=== PATIENT | female | born 1985 | race Caucasian/White ===

== ENCOUNTER 2020-05-15 19:21 | Inpatient (IN) | payer OTHER, SELFPAY ==
[2020-05-15] VITALS (7 sets, daily range): BP systolic 102–145; BP diastolic 64–86; PULSE 68–95; RESP 16–27; TEMP 37.2–38.4; O2SAT 97–100
--- NOTE | ~2020-05-15 | MR_ITS ---
EXAMINATION: MR brain/brain stem wo con DATE: 05/18/2020 18:30 INDICATION: Headache and fever. TECHNIQUE: Magnetic resonance imaging (MRI) of the brain and brainstem was performed without intraven ous contrast. Sequences included sagittal and axial T1-weighted FSE, axial diffusion-weighted FS EPI, axial T2*-weighted GRE, axial T2-weighted FLAIR Propeller, and axial T2-weighted Propeller. Apparent diffusion coefficient (ADC) maps were created. COMPARISON: Head CT 05/15/2020 FINDINGS: There is no intracranial hemorrhage, acute infarction, or abnormal intracranial mass lesion . The ventricles are normal in size. The orbits are normal. The paranasal sinuses are clear. The mast oid air cells are normal. IMPRESSION: 1. Normal brain. Reviewed, dictated and finalized at location A. IMPRESSION: 1. Normal brain.
--- NOTE | ~2020-05-15 | US_ITS ---
EXAMINATION: US pelvic complete w TV DATE: 05/18/2020 14:57 INDICATION: Recent miscarriage TECHNIQUE: Multiple transabdominal and endovaginal sonographic images of the pelvis were obtained. COMPARISON: None. FINDINGS: The uterus measures 8.4 x 4.0 x 3.7 cm. The endometrial complex measures 7 mm. The right ov dillon measures 2.5 x 1.6 x 1.5 cm. The left ovary measures 3.0 x 2.8 x 2.1 cm. There is normal vascular flow in the ovaries. There is no free fluid in the pelvis. IMPRESSION: 1. Unremarkable pelvic ultrasound. Reviewed, dictated and finalized at location A.
--- NOTE | ~2020-05-15 | XR_ITS ---
EXAMINATION: XR chest 2V DATE: 05/18/2020 14:54 INDICATION: Right-sided headache TECHNIQUE: PA and lateral views of the chest are obtained. COMPARISON: 05/15/2020 FINDINGS: The lungs are free of acute opacities. There is no pleural effusion or pneumothorax. The ca rdiomediastinal silhouette is normal. The visualized bones and soft tissues are unremarkable. IMPRESSION: 1. No acute cardiopulmonary abnormality. Reviewed, dictated and finalized at location A.
--- NOTE | ~2020-05-15 | XR_ITS ---
EXAMINATION: XR chest 1V portable DATE: 05/15/2020 20:52 INDICATION: Fever. Nausea and vomiting. Headache. TECHNIQUE: A single frontal view of the chest was obtained. COMPARISON: None. FINDINGS: The chest demonstrates clear lungs without pneumonia, pleural effusion, or pneumothorax. Th e heart size is normal. IMPRESSION: 1. No acute cardiopulmonary disease. Reviewed, dictated and finalized at location A.
--- NOTE | ~2020-05-15 | XR_ITS ---
XR lumbar puncture diagnostic DATE: 05/20/2020 17:57 INDICATION: Headache and intermittent fever. Possible tick exposure. TECHNIQUE: The purpose of the procedure, technique and potential complications including persistent h eadaches and need for possible epidural patch and up to approximately 3% of patients was explained to the patient. The patient verbalized understanding and gave consent. Timeout procedure confirmed prop er patient and procedure. The skin over the dorsal aspect of the lumbar spine was prepared with sterile Betadine solution. Ster ile drape was applied. 1% lidocaine local anesthetic was administered to the skin and under sliding s oft tissues. A 6 inch 20-gauge spinal needle was introduced in the midline under fluoroscopic guidanc e into the lumbar spinal subarachnoid space. The initial 4 cc collected was blood-tinged. The 3 subse quent collecting tubules were clear, indicating that this was most likely a traumatic tap. Recommend correlation with diagnostic pathology findings. A total of 12 cc was collected. The opening pressure was 20 mmHg. IMPRESSION: Opening pressure of 20 mmHg Likely traumatic tap, with clearing of the initially blood-tinged CSF on the second through fourth co llecting tubes Reviewed, dictated and finalized at Location A. Reviewed, dictated and finalized at location A. IMPRESSION: Opening pressure of 20 mmHg Likely traumatic tap, with clearing of the initially blood-tinged CSF on the se cond through fourth collecting tubes
--- NOTE | ~2020-05-15 | CT_ITS ---
EXAMINATION: CT brain wo con DATE: 05/15/2020 21:28 INDICATION: Headache. TECHNIQUE: Computed tomography (CT) of the head was performed without intravenous contrast. The mA wa s adjusted according to patient size. Iterative reconstruction technique was employed. The dose-lengt h product was 605.33 mGy-cm. COMPARISON: None FINDINGS: There is no intracranial hemorrhage, acute infarction, or abnormal intracranial mass lesion . The ventricles are normal in size. The paranasal sinuses are clear. The mastoid air cells are lauren l. The orbits are normal. IMPRESSION: 1. Normal brain. Reviewed, dictated and finalized at location A. IMPRESSION: 1. Normal brain.
--- NOTE | 2020-05-15 20:02 | ED.FEVER ---
HPI - Fever General Chief Complaint: Fever Stated Complaint: fever/n/v, wants covid tested Time Seen by Provider: 05/15/20 19:55 History of Present Illness HPI Narrative: Patient presents with 24 hours of fever. She had a miscarriage 2 weeks ago and is still bleeding and has pelvic pain. She also has a scant cough. HER-2 daughters went to the fitness center a week and a half ago that has reported COVID exposure. No one else at the house is sick. She also has a headache on the right side that goes to the forehead, and some right neck pain. She gauges the headache at 10 out of 10. She can put her chin on her chest. Head feels better with the lights out. She has a history of migraine. She has nausea and vomiting all day today. She tried to take ibuprofen for the headache but threw it up. She is a realtor. She does not smoke cigarettes, drink alcohol, or do drugs. MD elicited complaint: fever Onset (ago): hour(s) Context: other (Recent miscarriage) Associated symptoms: headache, cough, abdominal pain, nausea, vomiting and other (Vaginal bleeding) Related Data Allergies Allergy/AdvReac Type Severity Reaction Status Date / Time cefaclor Allergy Unknown Skin Verified 05/15/20 19:26 Reaction amoxicillin Allergy Rash Verified 05/15/20 19:26 Review of Systems Review of Systems: Narrative: CONSTITUTIONAL: She has fever, but not chills, or sweats. EYES: Denies visual changes, redness, or discharge. ENT: Denies rhinorrhea, congestion, sore throat, or otalgia. CARDIOVASCULAR: Denies chest pain, palpitations, or edema. RESPIRATORY: She has cough but not dyspnea. GASTROINTESTINAL: She has abdominal pain, nausea, vomiting, but not diarrhea. GENITOURINARY: Denies dysuria or hematuria. Still has vaginal bleeding since her miscarriage 2 weeks ago, with pelvic pain SKIN: Denies rash or itching. MUSCULOSKELETAL: Denies back pain, joint pain, or myalgia. NEUROLOGIC: She has headache, but not numbness, or weakness.. All systems reviewed & are unremarkable except as noted in HPI and below PMFSH Past Medical History Medical History (Updated 05/16/20 @ 00:33 by Esther Rivas MD) History of asthma Miscarriage Family History Family History (Updated 09/23/18 @ 14:01 by DOCTOR UNKNOWN) Other Family history of malignant neoplasm of breast Hypertension Social History Social History (Updated 05/15/20 @ 20:06 by Esther Rivas MD) Smoking status: Never smoker Alcohol intake: never Substance use: never Exam Narrative: Exam Narrative: GENERAL: Well-appearing, well-nourished, and in no acute distress. Feels cool. No neck tenderness. Full range of motion of the neck. HEAD: Normocephalic, atraumatic. EYES: PERRLA and EOMI. ENT: Nares clear, no rhinorrhea or epistaxis. Mucous membranes moist. NECK: Supple. CHEST: Clear to auscultation. No respiratory distress. HEART: Regular rate and rhythm. No murmur heard. Normal peripheral pulses. ABDOMEN: Soft, nontender, nondistended, normal active bowel sounds. EXTREMITIES: Normal range of motion. No edema. SKIN: Warm, dry, no rash. NEURO: No focal deficits. Alert and oriented x3. PSYCH: Normal mood and affect. : External Female Exam: other (Shaved pubis) Speculum Exam - Vagina: normal appearance of the vagina, normal palpation and abnormal vaginal discharge (Thick yellow, no odor, no blood) Speculum Exam - Cervix: normal palpation Bimanual exam- vagina & uterus: uterine mobility normal and non-tender Bimanual Exam- Adnexa, other: normal adnexae Course Reevaluation(s) Reevaluation #1: 20 1:06 PM, headache is down to 8 out of 10, nausea is better. We will add a CAT scan of the brain, and Benadryl for migraine. Date: 05/15/20 Time: 21:06 Reevaluation #2: Reevaluation at 20 3:38 PM. Patient still has a headache of 8 out of 10. Fever has resolved without antipyretics. She has had 2 L of fluids. She says the headaches at the base of her head, and is worse when she coughs.
[2020-05-15 20:24] LABS: Basophils Percent Auto 0.3 % (0.2-1.2); Eosinophils Percent Auto 0.1 % (0-4.4); Hematocrit 36.5 % (37.0-47.0); Hemoglobin 12.8 g/dL (12.0-15.0); Immature Granulocyte Absolute 0.04 K/mm3 (0.00-0.031); Immature Granulocyte Percent A 0.5 % (0-0.5); Lymphocytes Absolute Auto 0.99 K/mm3 (0.9-3.2); Lymphocytes Percent Auto 11.5 % (18.3-44.2); Mean Corpuscular HGB Conc 35.1 g/dl (32-36); Mean Corpuscular Hemoglobin 31.6 pg (26-34); Mean Corpuscular Volume 90.1 fl (80-100); Mean Platelet Volume 10.1 fl (7.4-10.4); Monocytes Absolute Auto 0.4 K/mm3 (0.1-0.6); Monocytes Percent Auto 4.9 % (2.6-8.5); Neutrophils Absolute Auto 7.1 K/mm3 (1.3-6.7); Neutrophils Percent Auto 82.7 % (45.5-73.1); Platelet Count Result 272 k/mm3 (150-375); Red Blood Count 4.05 M/mm3 (4.2-5.4); Red Cell Distribution Width 11.8 % (11.5-14.5); White Blood Count 8.6 K/mm3 (4.5-10.0)
[2020-05-15] MEDS: SODIUM CHLORIDE 0.9% IV 1,000 ML 999 ML IV CONT ×3 (20:33→23:57)
[2020-05-15 20:34] LABS: INR 1.1; Prothrombin Time 14.2 Seconds (11.1-14.7)
[2020-05-15] MEDS: ONDANSETRON INJ 4 MG/2 ML VIAL IV PUSH (20:34)
[2020-05-15] MEDS: MORPHINE SULFATE 4 MG/ML INJ IV PUSH (20:34)
[2020-05-15 20:35] LABS: Lactic Acid Reflex 0.7 mmol/L (0.7-2.1); Partial Thromboplastin Time 26.5 SECONDS (22.3-36.8)
[2020-05-15 20:39] LABS: Alanine Aminotransferase 26 U/L (4-35); Albumin Level 4.3 g/dL (3.5-5.1); Alkaline Phosphatase 94 U/L (38-126); Aspartate Amino Transferase 22 U/L (14-36); Bilirubin,Total 2.4 mg/dL (0.2-1.3); Blood Urea Nitrogen 11 mg/dL (7-17); CRP 1.6 mg/dL (<1.0); Calcium 8.7 mg/dL (8.4-10.2); Carbon Dioxide 25 mmol/L (22-30); Chloride 102 mmol/L (98-107); Estimated CRCL calculation 116 ml/min; Estimated Glomerular Filt Rate > 60; Glucose 109 mg/dL (65-105); Potassium 3.9 mmol/L (3.4-5.0); Sodium 134 mmol/L (137-145)
--- NOTE | 2020-05-15 21:04 | PC.NURSE ---
Pt told a urine sample is needed but is unable to void at this time
[2020-05-15] MEDS: diphenhydrAMINE HCl INJ 50 MG/ML VIAL IV PUSH (22:10)
[2020-05-15 23:05] LABS: Add Urine Microscopic? YES; Appearance Urine Clear (Clear); Bacteria Urine Trace /hpf; Bilirubin Urine Negative (Negative); Blood Urine Negative (Negative); Color Urine Yellow (Yellow); Glucose Urine UA Negative (Negative); Ketones Urine 2+ mg/dL (Negative); Leukocyte Esterase Ur Negative LEU/UL (Negative); Mucus Urine Few /lpf; Nitrate Urine Negative (Negative); Protein Urine Negative (Negative); RBC Urine 0-2 /hpf (0-2); Specific Grav Ur 1.023 (1.001-1.035); Squamous Epithelial Cell Urine Few /hpf (Few); Urobilinogen Urine Negative mg/dL (<2.0); WBC Urine 0-3 /hpf
--- NOTE | 2020-05-16 | PC.NURSE ---
Set up LP tray for ERP
[2020-05-16] MEDS: SODIUM CHLORIDE 0.9% IV 1,000 ML 999 ML IV CONT (00:43)
[2020-05-16] MEDS: diphenhydrAMINE HCl INJ 50 MG/ML VIAL 25 MG IV PUSH (00:43)
[2020-05-16 01:30] VITALS: BP 108/48; PULSE 74; RESP 16; TEMP 36.9; O2SAT 100; BMI 38.3
[2020-05-16 01:32] VITALS: BP 97/64; PULSE 85; RESP 15; TEMP 37.2; O2SAT 95
--- NOTE | 2020-05-16 01:51 | ADMGEN ---
This patient, Geovani Trevino, was admitted to [facility] Surg Room 324-01. Patient/family oriented to hospital policies and general routines including ID bracelet, bed and alarms, visiting hours, pain management, procedures, bathroom and other care routines, personal items, smoking policy, room service/diet, and visiting hours. Valuables list has been completed. Information on how to activate the Rapid Response Team has been discussed. Patient/Family are encouraged to report perceived risks to care and to ask questions if they do not understand what they are told or what they should do.
--- NOTE | 2020-05-16 02:26 | PM.IMHP ---
H&P: HPI History of Present Illness Chief complaint: fever, headache, vomiting Narrative: This is a 34 year old female with known asthma who presented to the hospital with a complaint of a frontal and right sided headache that has been ongoing for the past 2 days, nausea, vomiting and fever. The patient has had a sporadic cough but denies any persistent coughing. Her history is significant for having a recent miscarriage 2 weeks ago. She continues to have mild vaginal bleeding but denies any significant abdominal pain. The patient denies any neck stiffness but did complain of neck discomfort in the ER tonight. She reports that any food intake leads to worsening nausea and vomiting. She denies any seizure like activity tonight. She denies any focal neurological symptoms tonight. The patient does have a history of migaines in the past. She was evaluated in the ER tonight and LP was attempted but not obtained. The patient was empirically treated with antibiotics and swabbed for COVID-19. Review of Systems Review of Systems: All systems reviewed & are unremarkable except as noted in HPI and below PMFSH Past Medical History Medical History History of asthma Migraine Miscarriage Family History Family History Mother Family history of malignant neoplasm of breast Hypertension Grandparent Family history of malignant neoplasm of breast Social History Social History Smoking status: Former smoker Tobacco type: cigarettes Additional smoking assessment comments: smokes only socially had 1 cigarette 4-5 months ago Alcohol intake: former Drinks per week: 0 Substance use: never Gender identity (if verbalized by the patient): Female Spiritual care concerns: No Meds Home Medications and Allergies Allergies Allergy/AdvReac Type Severity Reaction Status Date / Time cefaclor Allergy Unknown Skin Verified 05/15/20 19:26 Reaction amoxicillin Allergy Rash Verified 05/15/20 19:26 Vital Signs Vital Signs - 24 hr 05/15/20 19:23 05/15/20 20:03 05/15/20 21:30 Temperature 37.8 C H 38.4 C H Pulse Rate 91 82 95 Respiratory Rate 20 16 27 H Blood Pressure 126/79 120/83 121/67 Pulse Oximetry 98 98 97 05/15/20 22:30 05/15/20 22:55 05/15/20 22:58 Temperature 37.4 C Pulse Rate 75 72 Respiratory Rate 24 H 19 Blood Pressure 102/64 145/86 H Pulse Oximetry 100 100 05/15/20 23:59 05/16/20 01:30 05/16/20 01:32 Temperature 37.2 C 36.9 C 37.2 C Pulse Rate 68 74 85 Respiratory Rate 24 H 16 15 Blood Pressure 122/70 108/48 L 97/64 L Pulse Oximetry 100 100 95 Exam Const: General: cooperative, alert, awake, ill appearing, tired appearing and uncomfortable Nutritional Appearance: obese Orientation/consciousness: patient oriented x3 HENMT: Head: normal to inspection General nose exam: Normal external nose present Face and sinus: normal facial exam Mouth: Yes Normal oral and palatal mucosa present and Yes oropharynx normal Eyes: Pupils: Equal, round and reactive pupils present EOM: EOMs intact bilaterally Neck: Neck: supple and no JVD Thyroid: thyroid normal Lymphatic: lymphadenopathy not noted Resp: Effort & Inspection: normal respiratory effort Auscultation: clear to auscultation bilaterally Cardio: Rate: regular rate Rhythm: regular rhythm Heart sounds: no murmurs GI: Inspection: normal to inspection Auscultation: normal bowel sounds Skin: General skin exam: normal color and no rashes or lesions noted Neuro: General: patient oriented x3 and other (No neck stiffness. Brudzinski sign is negative) Cranial nerves: Yes CN's II-XII intact bilaterally and Yes Equal, round and reactive pupils present Speech: normal speech Motor exam (neuro): 5/5 motor strength present throughout Sensory Exam: normal sensation Extrem: General:
[2020-05-16] MEDS: DEXTROSE 5%/0.9% SOD CHL 1,000 ML 100 ML IV CONT ×2 (02:36→10:40)
[2020-05-16] MEDS: ACETAMINOPHEN 325 MG TABLET 650 MG PO ×2 (03:15→12:44)
[2020-05-16 06:00] VITALS: BP 99/47; PULSE 66; RESP 16; TEMP 36.9; O2SAT 94
[2020-05-16 06:07] LABS: Basophils Percent Auto 0.4 % (0.2-1.2); Hematocrit 30.9 % (37.0-47.0); Hemoglobin 10.6 g/dL (12.0-15.0); Immature Granulocyte Absolute 0.03 K/mm3 (0.00-0.031); Immature Granulocyte Percent A 0.4 % (0-0.5); Lymphocytes Absolute Auto 1.62 K/mm3 (0.9-3.2); Mean Corpuscular HGB Conc 34.3 g/dl (32-36); Mean Corpuscular Hemoglobin 31.6 pg (26-34); Mean Corpuscular Volume 92.2 fl (80-100); Monocytes Absolute Auto 0.7 K/mm3 (0.1-0.6); Monocytes Percent Auto 8.7 % (2.6-8.5); Neutrophils Absolute Auto 6.1 K/mm3 (1.3-6.7); Neutrophils Percent Auto 71.5 % (45.5-73.1); Platelet Count Result 205 k/mm3 (150-375); Red Blood Count 3.35 M/mm3 (4.2-5.4); Red Cell Distribution Width 11.8 % (11.5-14.5); White Blood Count 8.5 K/mm3 (4.5-10.0)
[2020-05-16 06:26] LABS: Blood Urea Nitrogen 7 mg/dL (7-17); Calcium 7.2 mg/dL (8.4-10.2); Carbon Dioxide 22 mmol/L (22-30); Chloride 107 mmol/L (98-107); Estimated CRCL calculation 135 ml/min; Estimated Glomerular Filt Rate > 60; Glucose 126 mg/dL (65-105); Potassium 3.3 mmol/L (3.4-5.0); Sodium 134 mmol/L (137-145)
[2020-05-16] MEDS: PROCHLORPERAZINE EDISYLATE 10 MG/2 ML VIAL IV PUSH (07:39)
[2020-05-16 10:00] VITALS: BP 107/60; PULSE 81; RESP 18; TEMP 37.6; O2SAT 98
[2020-05-16] MEDS: POTASSIUM CHLORIDE 20 MEQ TABLET 40 MEQ PO (12:43)
[2020-05-16 14:00] VITALS: BP 118/69; PULSE 80; RESP 20; TEMP 37.9; O2SAT 95
[2020-05-16 14:26] LABS: SARS-CoV-2 RNA PCR Negative
--- NOTE | 2020-05-16 14:44 | PC.NURSE ---
Notified Dr. Lynn that patient COVID test is negative.
[2020-05-16] MEDS: KETOROLAC 30 MG/ML VIAL (*BKC) IV PUSH (14:58)
--- NOTE | 2020-05-16 17:19 | PM.IMPN ---
Progress Note: A&P Assessment and Plan (1) Febrile illness, acute: Code(s): R50.9 - Fever, unspecified Status: Acute Assessment and Plan: The patient appears to have a viral syndrome. She has been admitted for further care. Brain CT was unremarkable. Continue supportive care. LP was attempted in ER but unsuccessful but patient obviously does not have meningitis and I do not think she is toxic enough to warrant an LP at this time with no other signs other than headache which is improving. Blood cultures still pending and COVID test is negative Continue to monitor next 24 hours and if does well probable discharge then (2) Headache: Qualifiers: Headache chronicity pattern: unspecified pattern Headache type: unspecified Intractability: intractable Qualified Code(s): R51 - Headache Code(s): R51 - Headache Status: Acute Assessment and Plan: . The patient has not had any focal neurological symptoms . CT brain was normal. . We will continue to treat headache with analgesic medications as needed. If headache worsens can proceed with MRA or CTA (3) Suspected 2019 novel coronavirus infection: Code(s): Z20.828 - Contact with and (suspected) exposure to other viral communicable diseases Status: Acute Assessment and Plan: The patient has been swabbed for possible COVID-19 virus and is negative. (4) History of asthma: Code(s): Z87.09 - Personal history of other diseases of the respiratory system Status: Chronic Assessment and Plan: PRN bronchodilators as needed. Subjective Date/time seen: 05/16/20 17:19 Interval history: Date of visit 05/16 34-year-old healthy white female presented with 4-5 day history malaise, fever, headache. This afternoon after IV Toradol headache has subsided and was able to rest and feel better. Still not much appetite but did take clear liquids Exam Narrative: Exam Narrative: Blood pressure 118/70 pulse is 80 temperature 37.9? with T-max of only 38.4 Pupils equal reactive to light sclera anicteric Mouth and pharynx normal Neck is supple no adenopathy Lungs clear CV regular rate rhythm no murmurs Abdomen soft nontender bowel sounds normal active Extremities without edema distal pulses 2+ no rashes Neuro alert pleasant cooperative, cranial nerves 2-12 are intact no focal deficit oriented x3 and level of consciousness normal Objective Data Vital Signs Vital Signs: Vital Signs - 24 hr 05/15/20 19:23 05/15/20 20:03 05/15/20 21:30 Temperature 37.8 C H 38.4 C H Pulse Rate 91 82 95 Respiratory Rate 20 16 27 H Blood Pressure 126/79 120/83 121/67 Pulse Oximetry 98 98 97 05/15/20 22:30 05/15/20 22:55 05/15/20 22:58 Temperature 37.4 C Pulse Rate 75 72 Respiratory Rate 24 H 19 Blood Pressure 102/64 145/86 H Pulse Oximetry 100 100 05/15/20 23:59 05/16/20 01:30 05/16/20 01:32 Temperature 37.2 C 36.9 C 37.2 C Pulse Rate 68 74 85 Respiratory Rate 24 H 16 15 Blood Pressure 122/70 108/48 L 97/64 L Pulse Oximetry 100 100 95 05/16/20 06:00 05/16/20 10:00 05/16/20 14:00 Temperature 36.9 C 37.6 C 37.9 C H Pulse Rate 66 81 80 Respiratory Rate 16 18 20 Blood Pressure 99/47 L 107/60 118/69 Pulse Oximetry 94 98 95 Intake/Output Intake/Output: Intake & Output 05/13/20 05/14/20 05/15/20 05/16/20 23:59 23:59 23:59 23:59 Intake Total 19990 Output Total 2 Balance 1999 2218 Meds/Results Medications: Active Medications Generic Name Dose Route Start Last Admin Trade Name Freq PRN Reason Stop Dose Admin Acetaminophen 650 mg 05/16/20 02:42 05/16/20 12:44 Tylenol Tablet PO 650 mg Q4H PRN Administration Mild Pain (1-3) or Fever Dextrose/Sodium Chloride 1,000 mls @ 100 mls/hr 05/16/20 00:55 05/16/20 10:40 Dextrose 5% Sodium Chloride 0.9% IV CONT 100 mls/hr .Q10H MARTA Administration Ketorolac Tromethamine 15 mg 05/16/20 17:04 Toradol Inj IV PUSH 05/17/20
[2020-05-16 21:56] VITALS: BP 139/78; PULSE 71; RESP 18; TEMP 37; O2SAT 100
[2020-05-17] MEDS: DEXTROSE 5%/0.9% SOD CHL 1,000 ML 75 ML IV CONT (01:04)
[2020-05-17] MEDS: KETOROLAC 30 MG/ML VIAL (*BKC) 15 MG IV PUSH ×2 (01:05→09:15)
[2020-05-17] MEDS: ONDANSETRON INJ 4 MG/2 ML VIAL IV PUSH (04:30)
[2020-05-17] MEDS: ACETAMINOPHEN 325 MG TABLET 650 MG PO ×3 (05:55→20:41)
[2020-05-17 06:00] VITALS: BP 132/53; PULSE 70; RESP 18; TEMP 36.9; O2SAT 98
[2020-05-17 06:19] LABS: Blood Urea Nitrogen 3 mg/dL (7-17); Calcium 8.3 mg/dL (8.4-10.2); Carbon Dioxide 25 mmol/L (22-30); Chloride 102 mmol/L (98-107); Estimated CRCL calculation 117 ml/min; Estimated Glomerular Filt Rate > 60; Glucose 122 mg/dL (65-105); Potassium 3.8 mmol/L (3.4-5.0); Sodium 136 mmol/L (137-145)
[2020-05-17 10:00] VITALS: BP 130/57; PULSE 80; RESP 16; TEMP 37.1; O2SAT 98
[2020-05-17 14:00] VITALS: BP 147/76; PULSE 69; RESP 16; TEMP 36.9; O2SAT 100
--- NOTE | 2020-05-17 14:02 | PM.IMPN ---
Progress Note: A&P Assessment and Plan (1) Febrile illness, acute: Code(s): R50.9 - Fever, unspecified Status: Acute Assessment and Plan: Suspect related to viral syndrome. Brain CT was unremarkable. CXR clear. WBC normal. CRP 1.6. LP was attempted in ER but unsuccessful. Clinically, not felt patient has meningitis. COVID negative. Blood cultures NGTD but not yet 48hrs old. Will monitor overnight. Check for WNV. Consider repeating CXR if has recurrent fevers. probably home tomorrow if she remains stable (2) Headache: Qualifiers: Headache chronicity pattern: unspecified pattern Headache type: unspecified Intractability: intractable Qualified Code(s): R51 - Headache Code(s): R51 - Headache Status: Acute Assessment and Plan: The patient continues to have headache without neck pain. No focal neurological symptoms. CT brain was normal. Could be viral related that may have improved but worsened/persistent due to LP. (3) Suspected 2019 novel coronavirus infection: Code(s): Z20.828 - Contact with and (suspected) exposure to other viral communicable diseases Status: Acute Assessment and Plan: The patient was swabbed for COVID-19 virus and is negative. (4) History of asthma: Code(s): Z87.09 - Personal history of other diseases of the respiratory system Status: Chronic Assessment and Plan: Stable. Continue bronchodilators as needed. Subjective Date/time seen: 05/17/20 14:02 Interval history: 34-year-old healthy white female presented with 4-5 day history malaise, fever, headache. Still with headache. No hx of migraines. GALLEGOS mostly frontal and positional (worse when she sits up). No n/v but did require Zofram this morning. Had a miscarriage 2 weeks ago. BHCG was 27K but now down to 20 (being followed by her OB). She denies urinary symptoms. She denies abd pain or lower pelvic pain. Only slight vaginal discharge with brownish, non-foul smelling discharge. No purulence. No neck pain. Exam Narrative: Exam Narrative: Tm 100.2 98.8 130/57 80 16 98% ra Gen - NARD Neck - supple Chest - CTA bilaterally, nml RR CV - RRR S1/S2 Abd - Soft, NT/ND, Positive BS Back - no swelling around LP site. Ext - No pedal edema Neuro - Alert and oriented. Nonfocal exam. Psych - Nml mood and affect Skin - Warm and dry; no rash Objective Data Vital Signs Vital Signs: Vital Signs - 24 hr 05/16/20 21:56 05/17/20 06:00 05/17/20 10:00 Temperature 98.6 F 98.5 F 98.8 F Pulse Rate 71 70 80 Respiratory Rate 18 18 16 Blood Pressure 139/78 132/53 L 130/57 L Pulse Oximetry 100 98 98 Intake/Output Intake/Output: Intake & Output 05/14/20 05/15/20 05/16/20 05/17/20 23:59 23:59 23:59 23:59 Intake Total 1999 3770 250 Output Total 2602 2500 Balance 1999 1168 -2250 Meds/Results Medications: Active Medications Generic Name Dose Route Start Last Admin Trade Name Freq PRN Reason Stop Dose Admin Acetaminophen 650 mg 05/16/20 02:42 05/17/20 05:55 Tylenol Tablet PO 650 mg Q4H PRN Administration Mild Pain (1-3) or Fever Dextrose/Sodium Chloride 1,000 mls @ 75 mls/hr 05/16/20 00:55 05/17/20 01:04 Dextrose 5% Sodium Chloride 0.9% IV CONT 75 mls/hr .[id number] MARTA Administration Radiology Results: ITS Impressions Chest X-Ray 05/15/20 20:55 IMPRESSION: 1. No acute cardiopulmonary disease. Head CT 05/15/20 21:34 IMPRESSION: 1. Normal brain. Labs Labs: Laboratory Results - last 24 hr 05/16/20 05/17/20 00:57 05:52 Sodium 136 L Potassium 3.8 Chloride 102 Carbon Dioxide 25 BUN 3 L Creatinine 0.70 Estim Creat Clear Calc 117 Estimated GFR > 60 Glucose 122 H Calcium 8.3 L SARS-CoV-2 RNA (RT-PCR) Negative Quality VTE Prophylaxis VTE prophylaxis: mechanical ordered
[2020-05-17 22:00] VITALS: BP 115/67; PULSE 68; RESP 18; TEMP 36.6; O2SAT 97
[2020-05-17] MEDS: KETOROLAC 15 MG/ML VIAL (*BKC) IV PUSH (23:12)
[2020-05-18 06:10] VITALS: PULSE 69; RESP 18; TEMP 38.6; O2SAT 100
[2020-05-18 06:39] VITALS: TEMP 38.4
[2020-05-18] MEDS: ACETAMINOPHEN 325 MG TABLET 650 MG PO ×3 (06:39→21:04)
[2020-05-18 08:00] VITALS: TEMP 37.7
[2020-05-18] MEDS: KETOROLAC 15 MG/ML VIAL (*BKC) IV PUSH (09:18)
--- NOTE | 2020-05-18 13:08 | PM.IMPN ---
Progress Note: A&P Assessment and Plan (1) Febrile illness, acute: Code(s): R50.9 - Fever, unspecified Status: Acute Assessment and Plan: Suspect related to viral syndrome. Brain CT was unremarkable. CXR clear. WBC normal. CRP 1.6. LP was attempted in ER but unsuccessful. COVID negative. Blood cultures NGTD. Clinically, not felt patient has meningitis but with persistent fevers and headache. Neurology consulted and discussed. Will proceed with LP by radiology. Repeat CXR. COnsider repeating COIVD if LP bland. Start acyclovir. Will check pelvic US as well given recent miscarriage and pelvic pain. (2) Headache: Qualifiers: Headache chronicity pattern: unspecified pattern Headache type: unspecified Intractability: intractable Qualified Code(s): R51 - Headache Code(s): R51 - Headache Status: Acute Assessment and Plan: The patient continues to have headache with fever. No focal neurological symptoms but now with mild neck pain. CT brain was normal. Could be viral related that may have improved but worsened/persistent due to LP. Will have neurology consulted. (3) Suspected 2019 novel coronavirus infection: Code(s): Z20.828 - Contact with and (suspected) exposure to other viral communicable diseases Status: Acute Assessment and Plan: The patient was swabbed for COVID-19 virus and is negative. (4) History of asthma: Code(s): Z87.09 - Personal history of other diseases of the respiratory system Status: Chronic Assessment and Plan: Stable. Continue bronchodilators as needed. Subjective Date/time seen: 05/18/20 13:08 Interval history: 34-year-old healthy white female presented with 4-5 day history malaise, fever, headache. patient still with frontal headache. No rhinorrhea or postnasal drainage. Still with fevers and chills. No mouth lesions. Complains of nausea. She has a slight cough but denies chest pain or abdominal pain. She is having photophobia. She now complains of posterior neck pain. Exam Narrative: Exam Narrative: Tm 101.4 115/67 69 18 100% ra Gen - NARD Neck - supple without meningismus signs. She does have palpable pericervical tenderness Chest - CTA bilaterally, nml RR CV - RRR S1/S2 Abd - Soft, NT, +BS, mild suprapubic tenderness Ext - No pedal edema Neuro - Alert and oriented. Nonfocal exam. Psych - Nml mood and affect Skin - Warm and dry; no rash Objective Data Vital Signs Vital Signs: Vital Signs - 24 hr 05/17/20 14:00 05/17/20 22:00 05/18/20 06:10 Temperature 98.4 F 97.8 F 101.4 F H Pulse Rate 69 68 69 Respiratory Rate 16 18 18 Blood Pressure 147/76 H 115/67 Pulse Oximetry 100 97 100 05/18/20 06:39 05/18/20 08:00 Temperature 101.2 F H 99.8 F H Pulse Rate Respiratory Rate Blood Pressure Pulse Oximetry Intake/Output Intake/Output: Intake & Output 05/15/20 05/16/20 05/17/20 05/18/20 23:59 23:59 23:59 23:59 Intake Total 1999 3770 1550 590 Output Total 2602 5000 1100 Balance 1999 9506 -8657 -022 Meds/Results Medications: Active Medications Generic Name Dose Route Start Last Admin Trade Name Freq PRN Reason Stop Dose Admin Acetaminophen 650 mg 05/16/20 02:42 05/18/20 06:39 Tylenol Tablet PO 650 mg Q4H PRN Administration Mild Pain (1-3) or Fever Radiology Results: ITS Impressions Chest X-Ray 05/15/20 20:55 IMPRESSION: 1. No acute cardiopulmonary disease. Head CT 05/15/20 21:34 IMPRESSION: 1. Normal brain. Quality VTE Prophylaxis VTE prophylaxis: mechanical ordered
[2020-05-18 14:10] VITALS: BP 114/70; PULSE 70; RESP 18; TEMP 37.3; O2SAT 100
[2020-05-18] MEDS: ACYCLOVIR SODIUM IVPB 1,000 MG in DEXTROSE 5% IN WATER 250 ML 266 MG IVPB ×2 (15:42→21:06)
--- NOTE | 2020-05-18 16:04 | WPDNEURCNPN ---
Assessment and Plan Assessment and plan (1) History of asthma: Code(s): Z87.09 - Personal history of other diseases of the respiratory system Status: Chronic (2) Febrile illness, acute: Code(s): R50.9 - Fever, unspecified Status: Acute (3) Headache: Qualifiers: Headache chronicity pattern: unspecified pattern Headache type: unspecified Intractability: intractable Qualified Code(s): R51 - Headache Code(s): R51 - Headache Status: Acute (4) Suspected 2019 novel coronavirus infection: Code(s): Z20.828 - Contact with and (suspected) exposure to other viral communicable diseases Status: Acute (5) Fever: Qualifiers: Fever type: unspecified Qualified Code(s): R50.9 - Fever, unspecified Code(s): R50.9 - Fever, unspecified Status: Acute (6) Vomiting: Qualifiers: Nausea presence: with nausea Vomiting Intractability: non-intractable Vomiting type: unspecified Qualified Code(s): R11.2 - Nausea with vomiting, unspecified Code(s): R11.10 - Vomiting, unspecified Status: Acute Additional Plan discussed at length with the patient and the mother and they opted to have an MRI done 1st and they would like to wait for spinal fluid analysis if the present situation continues we will continue the present medical management and I will order the brain MRI with and without contrast and monitor closely and if need be and thing is the etiology still not clear about her fever then we should proceed with the spinal fluid analysis as I have discussed with Dr. Easley earlier this morning Consult date: 05/18/20 Time Seen: 15:45 HPI: Geovani Trevino is a 34 year old female who was examined by my partner Dr. Mckinnon earlier this morning for headache and fever since then I discussed it with Dr. Easley and I had recommended for the spinal tap because of continuation of the periodic fever and the headaches however the patient and the patient's mother is are reluctant at this time further history was obtained from the patient and the mother in her teenage years she used to have what sounds like menstrual migraine headaches and since then she stopped however at this time she has been suffering from a fever associated with the headache which initially started in the back of the head and now concentrated around her right side of the face and is periodic and comes and go without any associated loss of consciousness without any associated lateralizing paresthesias or weakness there has been no change in her mental status and it has been confirmed by her mother Review of Systems Review of Systems: All systems reviewed & are unremarkable except as noted in HPI and below PMFSH Past Medical History Medical History History of asthma Migraine Miscarriage Family History Family History Mother Family history of malignant neoplasm of breast Hypertension Grandparent Family history of malignant neoplasm of breast Social History Social History Smoking status: Former smoker Tobacco type: cigarettes Additional smoking assessment comments: smokes only socially had 1 cigarette 4-5 months ago Alcohol intake: former Drinks per week: 0 Substance use: never Gender identity (if verbalized by the patient): Female Spiritual care concerns: No Meds Home Medications and Allergies Home Medications Medication Instructions Recorded Confirmed Type No Home Medications 05/16/20 05/16/20 History Allergies Allergy/AdvReac Type Severity Reaction Status Date / Time cefaclor Allergy Unknown Skin Verified 05/15/20 19:26 Reaction Vital Signs Vital Signs - 24 hr 05/17/20 22:00 05/18/20 06:10 05/18/20 06:39 Temperature 36.6 C 38.6 C H 38.4 C H Pulse Rate 68 69 Respiratory Rate 18 18 Bl
[2020-05-18 16:17] LABS: Basophils Percent Auto 0.4 % (0.2-1.2); Eosinophils Percent Auto 0.3 % (0-4.4); Hematocrit 34.5 % (37.0-47.0); Hemoglobin 11.8 g/dL (12.0-15.0); Immature Granulocyte Absolute 0.04 K/mm3 (0.00-0.031); Immature Granulocyte Percent A 0.6 % (0-0.5); Lymphocytes Absolute Auto 1.19 K/mm3 (0.9-3.2); Mean Corpuscular HGB Conc 34.2 g/dl (32-36); Mean Corpuscular Hemoglobin 31.1 pg (26-34); Monocytes Absolute Auto 0.8 K/mm3 (0.1-0.6); Neutrophils Absolute Auto 4.9 K/mm3 (1.3-6.7); Neutrophils Percent Auto 69.7 % (45.5-73.1); Platelet Count Result 209 k/mm3 (150-375); Red Blood Count 3.79 M/mm3 (4.2-5.4); Red Cell Distribution Width 11.9 % (11.5-14.5)
[2020-05-18 16:27] LABS: Lactic Acid 1.7 mmol/L (0.7-2.1)
[2020-05-18] MEDS: ONDANSETRON INJ 4 MG/2 ML VIAL IV PUSH (16:48)
[2020-05-18 16:58] LABS: Alanine Aminotransferase 18 U/L (4-35); Albumin Level 3.9 g/dL (3.5-5.1); Alkaline Phosphatase 66 U/L (38-126); Anion Gap 11.7 mmol/L (7-16); Aspartate Amino Transferase 17 U/L (14-36); Bilirubin,Total 1.4 mg/dL (0.2-1.3); Blood Urea Nitrogen 8 mg/dL (7-17); CRP < 0.5 mg/dL (<1.0); Calcium 8.3 mg/dL (8.4-10.2); Carbon Dioxide 28 mmol/L (22-30); Chloride 99 mmol/L (98-107); Estimated CRCL calculation 117 ml/min; Estimated Glomerular Filt Rate > 60; Glucose 118 mg/dL (65-105); Lactate Dehydrogenase 447 U/L (313-618); Potassium 3.7 mmol/L (3.4-5.0); Sodium 135 mmol/L (137-145)
[2020-05-18 22:00] VITALS: BP 117/66; PULSE 72; RESP 18; TEMP 37.5; O2SAT 97
[2020-05-19 05:13] VITALS: TEMP 37.7
[2020-05-19] MEDS: ACETAMINOPHEN 325 MG TABLET 650 MG PO ×4 (05:13→20:00)
[2020-05-19] MEDS: ACYCLOVIR SODIUM IVPB 1,000 MG in DEXTROSE 5% IN WATER 250 ML 266 MG IVPB ×3 (05:15→22:30)
[2020-05-19 06:00] VITALS: BP 140/81; PULSE 71; RESP 18; TEMP 37.8; O2SAT 98
[2020-05-19 06:13] VITALS: TEMP 37.3
[2020-05-19 06:33] LABS: Hematocrit 33.3 % (37.0-47.0); Hemoglobin 11.5 g/dL (12.0-15.0); Mean Corpuscular HGB Conc 34.5 g/dl (32-36); Mean Corpuscular Hemoglobin 31.3 pg (26-34); Mean Corpuscular Volume 90.7 fl (80-100); Mean Platelet Volume 10.3 fl (7.4-10.4); Platelet Count Result 232 k/mm3 (150-375); Red Blood Count 3.67 M/mm3 (4.2-5.4); Red Cell Distribution Width 11.9 % (11.5-14.5); White Blood Count 6.6 K/mm3 (4.5-10.0)
[2020-05-19 06:49] LABS: Anion Gap 12.2 mmol/L (7-16); Blood Urea Nitrogen 7 mg/dL (7-17); Calcium 8.1 mg/dL (8.4-10.2); Carbon Dioxide 27 mmol/L (22-30); Chloride 97 mmol/L (98-107); Estimated CRCL calculation 104 ml/min; Estimated Glomerular Filt Rate > 60; Glucose 150 mg/dL (65-105); Potassium 3.2 mmol/L (3.4-5.0); Sodium 133 mmol/L (137-145)
[2020-05-19] MEDS: POTASSIUM CHLORIDE 20 MEQ TABLET 40 MEQ PO (08:09)
--- NOTE | 2020-05-19 12:16 | WPDNEUROPN ---
Progress Note: A&P Assessment and Plan (1) History of asthma: Code(s): Z87.09 - Personal history of other diseases of the respiratory system Status: Chronic (2) Febrile illness, acute: Code(s): R50.9 - Fever, unspecified Status: Acute (3) Fever: Qualifiers: Fever type: unspecified Qualified Code(s): R50.9 - Fever, unspecified Code(s): R50.9 - Fever, unspecified Status: Acute (4) Headache: Qualifiers: Headache chronicity pattern: unspecified pattern Headache type: unspecified Intractability: intractable Qualified Code(s): R51 - Headache Code(s): R51 - Headache Status: Acute Additional Plan discussed with the patient in detail all option risk in the benefits of the treatment and also discuss with the burglar alarm operator Dr. Easley after 2 interrupted discussion the patient is finally willing to undergo spinal tap for the fluid analysis particularly looking for any evidence of herpes infection at this point we should continue the present medical management From all the parameters we have it does not seem to be a COVID infection and this was shared by Dr. Easley and also shared it with the patient Review of Systems Review of Systems: All systems reviewed & are unremarkable except as noted in HPI and below Exam Const: General: comfortable and no acute distress HENMT: General nose exam: Normal nares present Mouth: Yes moist mucous membranes Eyes: General: appearance normal, both eyes and all related structures Neck: Neck: supple and no JVD Other: there is no nuchal rigidity and full range of motions of the neck noted Resp: Effort & Inspection: normal respiratory effort Auscultation: clear to auscultation bilaterally Cardio: Rate: regular rate Rhythm: regular rhythm GI: Auscultation: normal bowel sounds Skin: General skin exam: normal color and no rashes or lesions noted Neuro: Other: patient remains awake alert well oriented time place and person with normal speech and language function normal cranial examination normal motor examination normal and symmetrical reflexes and negative Babinski sign Extrem: General: normal to inspection Psych: Mental Status: mental status grossly normal Objective Data Vital Signs Vital Signs: Vital Signs - 24 hr 05/18/20 14:10 05/18/20 22:00 05/19/20 05:13 Temperature 37.3 C 37.5 C 37.7 C H Pulse Rate 70 72 Respiratory Rate 18 18 Blood Pressure 114/70 117/66 Pulse Oximetry 100 97 05/19/20 06:00 05/19/20 06:13 Temperature 37.8 C H 37.3 C Pulse Rate 71 Respiratory Rate 18 Blood Pressure 140/81 Pulse Oximetry 98 Intake/Output Intake/Output: Intake & Output 05/16/20 05/17/20 05/18/20 05/19/20 23:59 23:59 23:59 23:59 Intake Total 3770 1550 2350 970 Output Total 2602 5000 2500 1700 Balance 9288 -3450 -150 -730 Meds/Results Medications: Active Medications Generic Name Dose Route Start Last Admin Trade Name Freq PRN Reason Stop Dose Admin Acetaminophen 650 mg 05/16/20 02:42 05/19/20 08:07 Tylenol Tablet PO 650 mg Q4H PRN Administration Mild Pain (1-3) or Fever Acyclovir Sodium 1,000 mg/ 270 mls @ 266 mls/hr 05/18/20 14:25 05/19/20 06:16 Dextrose IVPB Infused Q8HR MARTA Infusion Ondansetron HCl 4 mg 05/18/20 16:41 05/18/20 16:48 Zofran Inj IV PUSH 4 mg Q6H PRN Administration Nausea And Vomiting Radiology Results: ITS Impressions Head CT 05/15/20 21:34 IMPRESSION: 1. Normal brain. Chest X-Ray 05/18/20 15:13 IMPRESSION: 1. No acute cardiopulmonary abnormality. Pelvic/Transvag US 05/18/20 15:15 IMPRESSION: 1. Unremarkable pelvic ultrasound. Brain MRI 05/19/20 06:31 IMPRESSION: 1. Normal brain. Labs Labs: Laboratory Results - last 24 hr 05/18/20 05/18/20 05/18/20 16:07 16:07 16:07 WBC 7.0 RBC 3.79 L Hgb 11.8 L Hct 34.5 L MCV 91.0 MCH 31.1 MCHC 34.2 RDW 11.
--- NOTE | 2020-05-19 13:35 | PM.IMPN ---
Progress Note: A&P Assessment and Plan (1) Febrile illness, acute: Code(s): R50.9 - Fever, unspecified Status: Acute Assessment and Plan: Suspect related to viral syndrome. Brain CT and MRI unremarkable. CXR clear on admission. WBC normal. CRP 1.6. LP was attempted in ER but unsuccessful. COVID negative. Blood cultures NGTD. Clinically, not felt patient have bacteraial meningitis but with persistent fevers and headache. Neurology consulted and appreciate their input. Repeat CXR normal. Pelvic US showing no acute findings. Inflammatory markers negative. Check HSV titers and Ehrlichiosis. (2) Headache: Qualifiers: Headache chronicity pattern: unspecified pattern Headache type: unspecified Intractability: intractable Qualified Code(s): R51 - Headache Code(s): R51 - Headache Status: Acute Assessment and Plan: The patient continues to have headache with fever. No focal neurological symptoms. CT and MRI brain are normal. Could be viral related that may have improved but worsened/persistent due to LP. Neurology following and appreciate their input. Patient now agrees for LP so will arrange. (3) Suspected 2019 novel coronavirus infection: Code(s): Z20.828 - Contact with and (suspected) exposure to other viral communicable diseases Status: Acute Assessment and Plan: The patient was swabbed for COVID-19 virus and is negative. (4) History of asthma: Code(s): Z87.09 - Personal history of other diseases of the respiratory system Status: Chronic Assessment and Plan: Stable. Continue bronchodilators as needed. Subjective Date/time seen: 05/19/20 13:35 Interval history: 34-year-old healthy female presented with 4-5 day history malaise, fever, headache. Patient slept well. GALLEGOS okay last night but worse today requiring Tylenol which decreased severity and able for her to rest. Nausea is improved. She refused LP until MRI completed. MRI normal but she wants to hold off and talk with neurology about LP. Potential tick exposure a few weeks ago. Exam Narrative: Exam Narrative: Tm 100.0 99.1 140/81 71 18 98% Gen - NARD Chest - CTA bilaterally, nml RR CV - RRR S1/S2 Abd - Soft, NT/ND, +BS Ext - No pedal edema Psych - Nml mood and affect Skin - Warm and dry Objective Data Vital Signs Vital Signs: Vital Signs - 24 hr 05/18/20 14:10 05/18/20 22:00 05/19/20 05:13 Temperature 99.1 F 99.5 F 100 F H Pulse Rate 70 72 Respiratory Rate 18 18 Blood Pressure 114/70 117/66 Pulse Oximetry 100 97 05/19/20 06:00 05/19/20 06:13 Temperature 100.0 F H 99.1 F Pulse Rate 71 Respiratory Rate 18 Blood Pressure 140/81 Pulse Oximetry 98 Intake/Output Intake/Output: Intake & Output 05/16/20 05/17/20 05/18/20 05/19/20 23:59 23:59 23:59 23:59 Intake Total 3770 1550 2350 970 Output Total 2602 5000 2500 1700 Balance 5048 -3450 -150 -730 Meds/Results Medications: Active Medications Generic Name Dose Route Start Last Admin Trade Name Freq PRN Reason Stop Dose Admin Acetaminophen 650 mg 05/16/20 02:42 05/19/20 08:07 Tylenol Tablet PO 650 mg Q4H PRN Administration Mild Pain (1-3) or Fever Acyclovir Sodium 1,000 mg/ 270 mls @ 266 mls/hr 05/18/20 14:25 05/19/20 06:16 Dextrose IVPB Infused Q8HR MARTA Infusion Ondansetron HCl 4 mg 05/18/20 16:41 05/18/20 16:48 Zofran Inj IV PUSH 4 mg Q6H PRN Administration Nausea And Vomiting Radiology Results: ITS Impressions Head CT 05/15/20 21:34 IMPRESSION: 1. Normal brain. Chest X-Ray 05/18/20 15:13 IMPRESSION: 1. No acute cardiopulmonary abnormality. Pelvic/Transvag US 05/18/20 15:15 IMPRESSION: 1. Unremarkable pelvic ultrasound. Brain MRI 05/19/20 06:31 IMPRESSION: 1. Normal brain. Labs Labs: Laboratory Results - last 24 hr 05/18/20 05/18/20 05/18/20 16:07 16:07
[2020-05-19 14:00] VITALS: BP 121/74; PULSE 90; RESP 16; TEMP 38.1; O2SAT 98
[2020-05-19 22:00] VITALS: BP 112/69; PULSE 88; RESP 20; TEMP 37.7; O2SAT 94
[2020-05-20] MEDS: ONDANSETRON INJ 4 MG/2 ML VIAL IV PUSH ×2 (00:02→09:25)
[2020-05-20] MEDS: ACETAMINOPHEN 325 MG TABLET 650 MG PO ×4 (01:29→21:14)
[2020-05-20 06:00] VITALS: BP 126/63; PULSE 87; RESP 20; TEMP 36.8; O2SAT 98
[2020-05-20] MEDS: ACYCLOVIR SODIUM IVPB 1,000 MG in DEXTROSE 5% IN WATER 250 ML 266 MG IVPB ×3 (06:28→21:15)
--- NOTE | 2020-05-20 10:46 | PM.IMPN ---
Progress Note: A&P Assessment and Plan (1) Febrile illness, acute: Code(s): R50.9 - Fever, unspecified Status: Acute Assessment and Plan: Suspect related to viral syndrome. Brain CT and MRI unremarkable. CXR clear on admission. WBC normal. CRP 1.6. LP was attempted in ER but unsuccessful. COVID negative. Blood cultures NGTD. Clinically, not felt patient have bacteraial meningitis but with persistent fevers and headache. Neurology consulted and appreciate their input. Repeat CXR normal. Pelvic US showing no acute findings. Inflammatory markers negative. HSV titers, WNV and Ehrlichiosis pending. Patient considering about LP. (2) Headache: Qualifiers: Headache chronicity pattern: unspecified pattern Headache type: unspecified Intractability: intractable Qualified Code(s): R51 - Headache Code(s): R51 - Headache Status: Acute Assessment and Plan: The patient continues to have headaches with fever. No focal neurological symptoms. CT and MRI brain are normal. Headache better but still seems to be worse with sitting up. Fever waning. Now on Acyclovir so not sure if this is helping or unrelated to her improvement. She again refused the LP but wants to think about it. Neurology following and appreciate their input. (3) Suspected 2019 novel coronavirus infection: Code(s): Z20.828 - Contact with and (suspected) exposure to other viral communicable diseases Status: Acute Assessment and Plan: The patient was swabbed for COVID-19 virus and is negative. Inflammatory markers normal so doubt she has COVID so will not plan to reswab. (4) History of asthma: Code(s): Z87.09 - Personal history of other diseases of the respiratory system Status: Chronic Assessment and Plan: Stable. Continue bronchodilators as needed. Subjective Date/time seen: 05/20/20 10:46 Interval history: 34yo female presented with 4-5 day history malaise, fever, headache. Patient refused LP again. She states I'm done and just want to go home . She complains of myalgias and not out of bed much. GALLEGOS better. Eating okay. Slight nausea last night but none today. Exam Narrative: Exam Narrative: Tm 100.6 98.3 126/63 87 20 98% ra Gen - NARD Neck - supple. mild pericervical palpable tenderness. Nml ROM and no neck stiffness Chest - CTA bilaterally, nml RR CV - RRR S1/S2 Abd - Soft, NT/ND, +BS Back - no swelling noted at the LP site. Ext - No pedal edema Psych - Nml mood and affect Skin - Warm and dry Objective Data Vital Signs Vital Signs: Vital Signs - 24 hr 05/19/20 14:00 05/19/20 22:00 05/20/20 06:00 Temperature 100.6 F H 99.9 F H 98.3 F Pulse Rate 90 88 87 Respiratory Rate 16 20 20 Blood Pressure 121/74 112/69 126/63 Pulse Oximetry 98 94 98 Intake/Output Intake/Output: Intake & Output 05/17/20 05/18/20 05/19/20 05/20/20 23:59 23:59 23:59 23:59 Intake Total 1550 2350 2900 1220 Output Total 5000 2500 2500 1900 Balance -3450 -150 400 -680 Meds/Results Medications: Active Medications Generic Name Dose Route Start Last Admin Trade Name Freq PRN Reason Stop Dose Admin Acetaminophen 650 mg 05/16/20 02:42 05/20/20 09:21 Tylenol Tablet PO 650 mg Q4H PRN Administration Mild Pain (1-3) or Fever Acyclovir Sodium 1,000 mg/ 270 mls @ 266 mls/hr 05/18/20 14:25 05/20/20 07:29 Dextrose IVPB Infused Q8HR MARTA Infusion Ondansetron HCl 4 mg 05/18/20 16:41 05/20/20 09:25 Zofran Inj IV PUSH 4 mg Q6H PRN Administration Nausea And Vomiting Radiology Results: ITS Impressions Head CT 05/15/20 21:34 IMPRESSION: 1. Normal brain. Chest X-Ray 05/18/20 15:13 IMPRESSION: 1. No acute cardiopulmonary abnormality. Pelvic/Transvag US 05/18/20 15:15 IMPRESSION: 1. Unremarkable pelvic ultrasound. Brain MRI 05/19/20 06:31 IMPRESSION: 1. Normal brain.
[2020-05-20 14:00] VITALS: BP 134/98; PULSE 93; RESP 16; TEMP 37.5; O2SAT 99
--- NOTE | 2020-05-20 14:49 | WPDNEUROPN ---
Progress Note: A&P Assessment and Plan (1) History of asthma: Code(s): Z87.09 - Personal history of other diseases of the respiratory system Status: Chronic (2) Febrile illness, acute: Code(s): R50.9 - Fever, unspecified Status: Acute (3) Fever: Qualifiers: Fever type: unspecified Qualified Code(s): R50.9 - Fever, unspecified Code(s): R50.9 - Fever, unspecified Status: Acute (4) Headache: Qualifiers: Headache chronicity pattern: unspecified pattern Headache type: unspecified Intractability: intractable Qualified Code(s): R51 - Headache Code(s): R51 - Headache Status: Acute Additional Plan patient is willing to go through the spinal tap changing her mind periodically however hopefully she will have it done today to make sure we are not missing a viral meningitis so far apart from the headache the patient has not shown any other sign neurologically of lateralizing deficit including the mental status examination Review of Systems Review of Systems: All systems reviewed & are unremarkable except as noted in HPI and below Exam Const: General: comfortable and no acute distress HENMT: General nose exam: Normal nares present Mouth: Yes moist mucous membranes Eyes: General: appearance normal, both eyes and all related structures Neck: Neck: supple and no JVD Resp: Effort & Inspection: normal respiratory effort Auscultation: clear to auscultation bilaterally Cardio: Rate: regular rate Rhythm: regular rhythm GI: Auscultation: normal bowel sounds Skin: General skin exam: normal color and no rashes or lesions noted Neuro: Other: patient awake alert well oriented normal speech language function normal cranial examination normal motor examination normal sensory examination she does need assistance in walking because she generally feels weak and fatigued Extrem: General: normal to inspection Psych: Mental Status: mental status grossly normal Objective Data Vital Signs Vital Signs: Vital Signs - 24 hr 05/19/20 22:00 05/20/20 06:00 Temperature 37.7 C H 36.8 C Pulse Rate 88 87 Respiratory Rate 20 20 Blood Pressure 112/69 126/63 Pulse Oximetry 94 98 Intake/Output Intake/Output: Intake & Output 05/17/20 05/18/20 05/19/20 05/20/20 23:59 23:59 23:59 23:59 Intake Total 1550 2350 2900 1220 Output Total 5000 2500 2500 1900 Balance -3450 -150 400 -680 Meds/Results Medications: Active Medications Generic Name Dose Route Start Last Admin Trade Name Freq PRN Reason Stop Dose Admin Acetaminophen 650 mg 05/16/20 02:42 05/20/20 14:06 Tylenol Tablet PO 650 mg Q4H PRN Administration Mild Pain (1-3) or Fever Acyclovir Sodium 1,000 mg/ 270 mls @ 266 mls/hr 05/18/20 14:25 05/20/20 14:07 Dextrose IVPB 266 mls/hr Q8HR MARTA Administration Ondansetron HCl 4 mg 05/18/20 16:41 05/20/20 09:25 Zofran Inj IV PUSH 4 mg Q6H PRN Administration Nausea And Vomiting Radiology Results: ITS Impressions Head CT 05/15/20 21:34 IMPRESSION: 1. Normal brain. Chest X-Ray 05/18/20 15:13 IMPRESSION: 1. No acute cardiopulmonary abnormality. Pelvic/Transvag US 05/18/20 15:15 IMPRESSION: 1. Unremarkable pelvic ultrasound. Brain MRI 05/19/20 06:31 IMPRESSION: 1. Normal brain. Quality VTE Prophylaxis VTE prophylaxis: mechanical ordered
[2020-05-20 18:22] VITALS: BP 121/82; PULSE 102; RESP 20; O2SAT 96
[2020-05-20 18:23] VITALS: BP 141/100; PULSE 92; RESP 20; O2SAT 94
[2020-05-20 19:34] LABS: Glucose CSF 46 mg/dL (40-70); Total Protein CSF 139 mg/dL (12-60)
[2020-05-20 20:00] VITALS: PULSE 105; RESP 16; O2SAT 100
[2020-05-20 20:24] LABS: Appearance CSF Hazy (Clear); CSF source CSF; Color CSF Colorless (Colorless); Neutrophils CSF 0 % (0-6); Nucleated Cell CSF 305 /uL (0-5); Red Blood Cell CSF 25 (0-2)
[2020-05-20 20:25] LABS: Lymphocytes CSF 94 % (40-80); Macrophages CSF 6
[2020-05-20 22:00] VITALS: BP 121/68; PULSE 105; RESP 16; TEMP 38.6; O2SAT 100
[2020-05-21] MEDS: KETOROLAC 30 MG/ML VIAL (*BKC) IV PUSH (00:53)
[2020-05-21] MEDS: ONDANSETRON INJ 4 MG/2 ML VIAL IV PUSH ×2 (05:46→15:45)
[2020-05-21] MEDS: ACYCLOVIR SODIUM IVPB 1,000 MG in DEXTROSE 5% IN WATER 250 ML 266 MG IVPB ×3 (05:47→21:28)
[2020-05-21 06:00] VITALS: BP 98/60; PULSE 87; RESP 16; TEMP 36.7; O2SAT 97
--- NOTE | 2020-05-21 13:35 | PM.IMPN ---
Progress Note: A&P Assessment and Plan (1) Febrile illness, acute: Code(s): R50.9 - Fever, unspecified Status: Acute Assessment and Plan: Suspect related to viral encephalitis syndrome. Brain CT and MRI unremarkable. CXR clear on admission. WBC normal. CRP 1.6. COVID negative. Blood cultures Negative. Repeat CXR normal. Pelvic US showing no acute findings. Inflammatory markers negative. HSV titers, WNV and Ehrlichiosis pending. LP completed on 05/20 with opening pressure at 20mmHg. Likely traumatic tap with clearing of initially blood tinged CSF. RBC 25 with WBC 305 95% lymphocytes. TP CSF 139 with normal glucose. Neurology consulted and appreciate their input. Other CSF findings pending. Contineu Acyclovir. Add Doxy. (2) Viral encephalitis: Code(s): A86 - Unspecified viral encephalitis Status: Acute Assessment and Plan: As above. (3) Headache: Qualifiers: Headache chronicity pattern: unspecified pattern Headache type: unspecified Intractability: intractable Qualified Code(s): R51 - Headache Code(s): R51 - Headache Status: Acute Assessment and Plan: The patient continues to have headaches with fever. No focal neurological symptoms. CT and MRI brain are normal. Headache better today. Fever overnight but curve slowly improving. Now on Acyclovir and are awaiting HSV PCR results. Neurology following and appreciate their input. Other testing pending. (4) Suspected 2019 novel coronavirus infection: Code(s): Z20.828 - Contact with and (suspected) exposure to other viral communicable diseases Status: Acute Assessment and Plan: The patient was swabbed for COVID-19 virus and is negative. Inflammatory markers normal so doubt she has COVID so will not plan to reswab. (5) History of asthma: Code(s): Z87.09 - Personal history of other diseases of the respiratory system Status: Chronic Assessment and Plan: Stable. Continue bronchodilators as needed. Subjective Date/time seen: 05/21/20 13:35 Interval history: 34yo female presented with 4-5 day history malaise, fever, headache. Patient had LP finally last night. She is still having GALLEGOS but was able to watch TV for a few hours. Feeling better overall. Eating ok but only small amounts. Exam Narrative: Exam Narrative: Tm 101.5 98.1 98/60 87 16 97% ra Gen - NARD lying flat in bed Chest - CTA bilaterally, nml RR CV - RRR S1/S2 Abd - Soft, NT/ND, +BS Ext - No pedal edema Psych - Nml mood and affect; appears to be in better spirits. Skin - Warm and dry Objective Data Vital Signs Vital Signs: Vital Signs - 24 hr 05/20/20 14:00 05/20/20 18:22 05/20/20 18:23 Temperature 99.5 F Pulse Rate 93 102 H 92 Respiratory Rate 16 20 20 Blood Pressure 134/98 H 121/82 141/100 H Pulse Oximetry 99 96 94 05/20/20 20:00 05/20/20 22:00 05/21/20 06:00 Temperature 101.5 F H 98.1 F Pulse Rate 105 H 105 H 87 Respiratory Rate 16 16 16 Blood Pressure 121/68 98/60 L Pulse Oximetry 100 100 97 Intake/Output Intake/Output: Intake & Output 05/18/20 05/19/20 05/20/20 05/21/20 23:59 23:59 23:59 23:59 Intake Total 2350 2900 2350 450 Output Total 2500 2500 2800 1400 Balance -150 400 -450 -950 Meds/Results Medications: Active Medications Generic Name Dose Route Start Last Admin Trade Name Freq PRN Reason Stop Dose Admin Acetaminophen 650 mg 05/20/20 16:02 05/20/20 21:14 Tylenol Tablet PO 650 mg Q4H PRN Administration Pain Hydrocodone Bitart/Acetaminophen 1 tab 05/20/20 16:00 05/21/20 12:16 [place] 5-325 Mg PO 1 tab Q6H PRN Administration Pain Rated 6 or Greater Acyclovir Sodium 1,000 mg/ 270 mls @ 266 mls/hr 05/18/20 14:25 05/21/20 05:47 Dextrose IVPB 266 mls/hr Q8HR MARTA Administration Ondansetron HCl 4 mg 05/18/20 16:41 05/21/20 05:46 Zofran Inj IV PUSH 4 mg Q6H PRN
[2020-05-21 14:00] VITALS: BP 120/63; PULSE 87; RESP 18; TEMP 37.8; O2SAT 94
[2020-05-21] MEDS: ACETAMINOPHEN 325 MG TABLET 650 MG PO ×2 (14:07→19:12)
--- NOTE | 2020-05-21 15:39 | WPDNEUROPN ---
Progress Note: A&P Assessment and Plan (1) Viral encephalitis: Code(s): A86 - Unspecified viral encephalitis Status: Acute (2) History of asthma: Code(s): Z87.09 - Personal history of other diseases of the respiratory system Status: Chronic (3) Febrile illness, acute: Code(s): R50.9 - Fever, unspecified Status: Acute (4) Fever: Qualifiers: Fever type: unspecified Qualified Code(s): R50.9 - Fever, unspecified Code(s): R50.9 - Fever, unspecified Status: Acute (5) Headache: Qualifiers: Headache chronicity pattern: unspecified pattern Headache type: unspecified Intractability: intractable Qualified Code(s): R51 - Headache Code(s): R51 - Headache Status: Acute Additional Plan continue acyclovir with the follow-up BMP daily while she is on acyclovir to make sure her renal status does not get affected follow the rash she has are in a armpits so which direction and goes discussed the findings of the spinal fluid analysis with daughter who is the patient also the mother Review of Systems Review of Systems: All systems reviewed & are unremarkable except as noted in HPI and below Exam Const: General: comfortable and no acute distress HENMT: General nose exam: Normal nares present Mouth: Yes moist mucous membranes Eyes: General: appearance normal, both eyes and all related structures Neck: Neck: supple and no JVD Resp: Effort & Inspection: normal respiratory effort Auscultation: clear to auscultation bilaterally Cardio: Rate: regular rate Rhythm: regular rhythm GI: Auscultation: normal bowel sounds Skin: General skin exam: normal color and no rashes or lesions noted Neuro: Other: patient is awake alert well oriented to time place and person normal speech and language function normal cranial examination normal motor and sensory examiner Extrem: General: normal to inspection Psych: Mental Status: mental status grossly normal Objective Data Vital Signs Vital Signs: Vital Signs - 24 hr 05/20/20 18:22 05/20/20 18:23 05/20/20 20:00 Temperature Pulse Rate 102 H 92 105 H Respiratory Rate 20 20 16 Blood Pressure 121/82 141/100 H Pulse Oximetry 96 94 100 05/20/20 22:00 05/21/20 06:00 Temperature 38.6 C H 36.7 C Pulse Rate 105 H 87 Respiratory Rate 16 16 Blood Pressure 121/68 98/60 L Pulse Oximetry 100 97 Intake/Output Intake/Output: Intake & Output 05/18/20 05/19/20 05/20/20 05/21/20 23:59 23:59 23:59 23:59 Intake Total 2350 2900 2350 475 Output Total 2500 2500 2800 1400 Balance -150 400 450 925 Meds/Results Medications: Active Medications Generic Name Dose Route Start Last Admin Trade Name Freq PRN Reason Stop Dose Admin Acetaminophen 650 mg 05/20/20 16:02 05/21/20 14:07 Tylenol Tablet PO 650 mg Q4H PRN Administration Pain Hydrocodone Bitart/Acetaminophen 1 tab 05/20/20 16:00 05/21/20 12:16 [place] 5-325 Mg PO 1 tab Q6H PRN Administration Pain Rated 6 or Greater Acyclovir Sodium 1,000 mg/ 270 mls @ 266 mls/hr 05/18/20 14:25 05/21/20 05:47 Dextrose IVPB 266 mls/hr Q8HR MARTA Administration Doxycycline Hyclate 100 mg/ 100 mls @ 100 mls/hr 05/21/20 14:10 Dextrose IVPB Q12HR MARTA Ondansetron HCl 4 mg 05/18/20 16:41 05/21/20 05:46 Zofran Inj IV PUSH 4 mg Q6H PRN Administration Nausea And Vomiting Radiology Results: ITS Impressions Head CT 05/15/20 21:34 IMPRESSION: 1. Normal brain. Chest X-Ray 05/18/20 15:13 IMPRESSION: 1. No acute cardiopulmonary abnormality. Pelvic/Transvag US 05/18/20 15:15 IMPRESSION: 1. Unremarkable pelvic ultrasound. Brain MRI 05/19/20 06:31 IMPRESSION: 1. Normal brain. Lumbar Puncture Fluoroscopy 05/20/20 17:59 IMPRESSION: Opening pressure of 20 mmHg Likely traumatic tap, with clearing of the initially blood-tinged CSF on the second through fourth col
[2020-05-21] MEDS: KETOROLAC 15 MG/ML VIAL (*BKC) IV PUSH (17:52)
[2020-05-21 20:00] VITALS: PULSE 87; RESP 18; O2SAT 94
[2020-05-21 22:04] VITALS: BP 113/61; PULSE 84; RESP 16; TEMP 36.6; O2SAT 98
[2020-05-22] MEDS: ONDANSETRON INJ 4 MG/2 ML VIAL IV PUSH ×3 (00:16→11:48)
[2020-05-22] MEDS: ACYCLOVIR SODIUM IVPB 1,000 MG in DEXTROSE 5% IN WATER 250 ML 266 MG IVPB ×3 (05:42→21:55)
[2020-05-22] MEDS: ACETAMINOPHEN 325 MG TABLET 650 MG PO ×2 (05:47→19:43)
[2020-05-22 06:00] VITALS: BP 127/73; PULSE 98; RESP 16; TEMP 37.3; O2SAT 97
[2020-05-22 06:42] LABS: Basophils Percent Auto 0.4 % (0.2-1.2); Eosinophils Absolute Auto 0.1 K/mm3 (0-0.3); Eosinophils Percent Auto 0.8 % (0-4.4); Hematocrit 33.5 % (37.0-47.0); Hemoglobin 11.9 g/dL (12.0-15.0); Immature Granulocyte Absolute 0.04 K/mm3 (0.00-0.031); Immature Granulocyte Percent A 0.5 % (0-0.5); Lymphocytes Absolute Auto 1.28 K/mm3 (0.9-3.2); Lymphocytes Percent Auto 15.2 % (18.3-44.2); Mean Corpuscular HGB Conc 35.5 g/dl (32-36); Mean Corpuscular Hemoglobin 31.8 pg (26-34); Mean Corpuscular Volume 89.6 fl (80-100); Mean Platelet Volume 10.6 fl (7.4-10.4); Monocytes Absolute Auto 0.6 K/mm3 (0.1-0.6); Monocytes Percent Auto 7.5 % (2.6-8.5); Neutrophils Absolute Auto 6.4 K/mm3 (1.3-6.7); Neutrophils Percent Auto 75.6 % (45.5-73.1); Platelet Count Result 217 k/mm3 (150-375); Red Blood Count 3.74 M/mm3 (4.2-5.4); Red Cell Distribution Width 12.3 % (11.5-14.5); White Blood Count 8.4 K/mm3 (4.5-10.0)
[2020-05-22 07:05] LABS: Anion Gap 11.9 mmol/L (7-16); Blood Urea Nitrogen 13 mg/dL (7-17); Calcium 8.1 mg/dL (8.4-10.2); Carbon Dioxide 28 mmol/L (22-30); Chloride 97 mmol/L (98-107); Estimated CRCL calculation 71 ml/min; Estimated Glomerular Filt Rate 51; Glucose 122 mg/dL (65-105); Potassium 3.9 mmol/L (3.4-5.0); Sodium 133 mmol/L (137-145)
--- NOTE | 2020-05-22 13:34 | PM.IMPN ---
Progress Note: A&P Assessment and Plan (1) Febrile illness, acute: Code(s): R50.9 - Fever, unspecified Status: Acute Assessment and Plan: Suspect related to viral encephalitis syndrome. Brain CT and MRI unremarkable. CXR clear on admission. WBC normal. CRP 1.6. COVID negative. Blood cultures Negative. Repeat CXR normal. Pelvic US showing no acute findings. Inflammatory markers negative. HSV titers, WNV and Ehrlichiosis pending. LP completed on 05/20 with opening pressure at 20mmHg. Likely traumatic tap with clearing of initially blood tinged CSF. RBC 25 with WBC 305 95% lymphocytes. TP CSF 139 with normal glucose. Neurology consulted and appreciate their input. Other CSF findings still pending. Contineu Acyclovir and Doxy. (2) Viral encephalitis: Code(s): A86 - Unspecified viral encephalitis Status: Acute Assessment and Plan: As above. (3) Headache: Qualifiers: Headache chronicity pattern: unspecified pattern Headache type: unspecified Intractability: intractable Qualified Code(s): R51 - Headache Code(s): R51 - Headache Status: Acute Assessment and Plan: The patient continues to have headaches with fever. No focal neurological symptoms. CT and MRI brain are normal. Headache better today. Fever curve slowly improving. Conitnue Acyclovir as we await HSV PCR results. Neurology following and appreciate their input. Other testing pending. (4) Suspected 2019 novel coronavirus infection: Code(s): Z20.828 - Contact with and (suspected) exposure to other viral communicable diseases Status: Acute Assessment and Plan: The patient was swabbed for COVID-19 virus and is negative. Inflammatory markers normal so doubt she has COVID so will not plan to reswab. (5) History of asthma: Code(s): Z87.09 - Personal history of other diseases of the respiratory system Status: Chronic Assessment and Plan: Stable. Continue bronchodilators as needed. Subjective Date/time seen: 05/22/20 13:34 Interval history: 34yo female presented with 4-5 day history malaise, fever, headache. Patient feels better today. Headache is improved. Family at bedside. They were updated with patient permission. Patient denies any nausea or vomiting. She is eating better. No chest pain or shortness of breath. She is moving around better. She was up sitting in the chair for a more extended. Exam Narrative: Exam Narrative: Tm 100.0 99.2 127/73 98 16 97% ra Gen - NARD lying flat in bed Chest - CTA bilaterally, nml RR CV - RRR S1/S2 Abd - Soft, NT/ND, +BS Ext - No pedal edema Psych - Nml mood and affect Skin - Warm and dry Objective Data Vital Signs Vital Signs: Vital Signs - 24 hr 05/21/20 14:00 05/21/20 20:00 05/21/20 22:04 Temperature 100.0 F H 97.9 F Pulse Rate 87 87 84 Respiratory Rate 18 18 16 Blood Pressure 120/63 113/61 Pulse Oximetry 94 94 98 05/22/20 06:00 Temperature 99.2 F Pulse Rate 98 Respiratory Rate 16 Blood Pressure 127/73 Pulse Oximetry 97 Intake/Output Intake/Output: Intake & Output 05/19/20 05/20/20 05/21/20 05/22/20 23:59 23:59 23:59 23:59 Intake Total 2900 2350 1885 920 Output Total 2500 2800 2200 1450 Balance 400 -450 -315 -530 Meds/Results Medications: Active Medications Generic Name Dose Route Start Last Admin Trade Name Freq PRN Reason Stop Dose Admin Acetaminophen 650 mg 05/20/20 16:02 05/22/20 05:47 Tylenol Tablet PO 650 mg Q4H PRN Administration Pain Hydrocodone Bitart/Acetaminophen 1 tab 05/20/20 16:00 05/21/20 12:16 [place] 5-325 Mg PO 1 tab Q6H PRN Administration Pain Rated 6 or Greater Acyclovir Sodium 1,000 mg/ 270 mls @ 266 mls/hr 05/18/20 14:25 05/22/20 10:53 Dextrose IVPB Infused Q8HR MARTA Infusion Doxycycline Hyclate 100 mg/ 100 mls @ 100 mls/hr 05/21/20 14:10 05/22/20 10:54 Dextrose IV
[2020-05-22] MEDS: KETOROLAC 15 MG/ML VIAL (*BKC) IV PUSH (13:47)
[2020-05-22 14:00] VITALS: BP 137/85; PULSE 85; RESP 20; TEMP 37.3; O2SAT 95
[2020-05-22] MEDS: SODIUM CHLORIDE 0.9% IV 1,000 ML 100 ML IV CONT (16:38)
--- NOTE | 2020-05-22 17:39 | WPDNEUROPN ---
Progress Note: A&P Assessment and Plan (1) Viral encephalitis: Code(s): A86 - Unspecified viral encephalitis Status: Acute (2) Febrile illness, acute: Code(s): R50.9 - Fever, unspecified Status: Acute (3) Fever: Qualifiers: Fever type: unspecified Qualified Code(s): R50.9 - Fever, unspecified Code(s): R50.9 - Fever, unspecified Status: Acute (4) Headache: Qualifiers: Headache chronicity pattern: unspecified pattern Headache type: unspecified Intractability: intractable Qualified Code(s): R51 - Headache Code(s): R51 - Headache Status: Acute Additional Plan I discussed with our pharmacist about the dosing of the acyclovir in a background of rising creatinine and BUN and the she told me that as long as the creatinine clearance is more than 50 than the present dose is quite good I shared this information with the mother and will continue monitoring lab profile on a daily basis and also shared this with Dr. Easley and hoping to find out the results of the PCR for herpes in particular in the next day or so Review of Systems Review of Systems: All systems reviewed & are unremarkable except as noted in HPI and below Exam Const: General: comfortable and no acute distress HENMT: General nose exam: Normal nares present Mouth: Yes moist mucous membranes Eyes: General: appearance normal, both eyes and all related structures Neck: Neck: supple and no JVD Resp: Effort & Inspection: normal respiratory effort Auscultation: clear to auscultation bilaterally Cardio: Rate: regular rate Rhythm: regular rhythm GI: Auscultation: normal bowel sounds Skin: General skin exam: normal color and no rashes or lesions noted Neuro: Other: patient remains awake alert well oriented time place and person is speech and language functions normal cranial exam shows normal she was able to take shower and mother was just giving her contact guard assistance in many visits in the previous several days the patient has shown no sign of mental dysfunction or no sign of lateralizing or even otherwise weakness or sensory deficit I the subjective or objective Extrem: General: normal to inspection Psych: Mental Status: mental status grossly normal Objective Data Vital Signs Vital Signs: Vital Signs - 24 hr 05/21/20 20:00 05/21/20 22:04 05/22/20 06:00 Temperature 36.6 C 37.3 C Pulse Rate 87 84 98 Respiratory Rate 18 16 16 Blood Pressure 113/61 127/73 Pulse Oximetry 94 98 97 05/22/20 14:00 Temperature 37.3 C Pulse Rate 85 Respiratory Rate 20 Blood Pressure 137/85 Pulse Oximetry 95 Intake/Output Intake/Output: Intake & Output 05/19/20 05/20/20 05/21/20 05/22/20 23:59 23:59 23:59 23:59 Intake Total 2900 2350 1885 920 Output Total 2500 2800 2200 1450 Balance 400 -450 -315 -530 Meds/Results Medications: Active Medications Generic Name Dose Route Start Last Admin Trade Name Freq PRN Reason Stop Dose Admin Acetaminophen 650 mg 05/20/20 16:02 05/22/20 05:47 Tylenol Tablet PO 650 mg Q4H PRN Administration Pain Hydrocodone Bitart/Acetaminophen 1 tab 05/20/20 16:00 05/21/20 12:16 [place] 5-325 Mg PO 1 tab Q6H PRN Administration Pain Rated 6 or Greater Acyclovir Sodium 1,000 mg/ 270 mls @ 266 mls/hr 05/18/20 14:25 05/22/20 13:47 Dextrose IVPB 266 mls/hr Q8HR MARTA Administration Doxycycline Hyclate 100 mg/ 100 mls @ 100 mls/hr 05/21/20 14:10 05/22/20 10:54 Dextrose IVPB Infused Q12HR MARTA Infusion Sodium Chloride 1,000 mls @ 100 mls/hr 05/22/20 14:15 05/22/20 16:38 Normal Saline Iv IV CONT 100 mls/hr .Q10H MARTA Administration Ondansetron HCl 4 mg 05/18/20 16:41 05/22/20 11:48 Zofran Inj IV PUSH 4 mg Q6H PRN Administration Nausea And Vomiting Radiology Results: ITS Impressions Head CT 05/15/20 21:34 IMPRESSION: 1. Normal brain. Chest X-Ray 05/18/20 15:13
[2020-05-22 20:09] LABS: Alanine Aminotransferase 11 U/L (4-35)
[2020-05-22 20:29] LABS: Albumin Level 3.6 g/dL (3.5-5.1); Alkaline Phosphatase 62 U/L (38-126); Anion Gap 11.6 mmol/L (7-16); Aspartate Amino Transferase 14 U/L (14-36); Bilirubin,Total 1.2 mg/dL (0.2-1.3); Blood Urea Nitrogen 14 mg/dL (7-17); Calcium 8.3 mg/dL (8.4-10.2); Carbon Dioxide 29 mmol/L (22-30); Chloride 95 mmol/L (98-107); Estimated CRCL calculation 77 ml/min; Estimated Glomerular Filt Rate 57; Glucose 115 mg/dL (65-105); Potassium 3.6 mmol/L (3.4-5.0); Sodium 132 mmol/L (137-145)
[2020-05-22 22:00] VITALS: BP 106/80; PULSE 88; RESP 20; TEMP 38.2; O2SAT 97
[2020-05-22 22:56] VITALS: TEMP 37.3
[2020-05-23] VITALS (7 sets, daily range): BP systolic 126–131; BP diastolic 73–89; PULSE 74–83; RESP 18–20; TEMP 36.9–37.9; O2SAT 95–99
[2020-05-23] MEDS: SODIUM CHLORIDE 0.9% IV 1,000 ML 100 ML IV CONT ×2 (02:53→15:39)
[2020-05-23] MEDS: ACETAMINOPHEN 325 MG TABLET 650 MG PO ×2 (05:25→15:39)
[2020-05-23] MEDS: ACYCLOVIR SODIUM IVPB 1,000 MG in DEXTROSE 5% IN WATER 250 ML 266 MG IVPB ×3 (05:26→23:17)
[2020-05-23 09:10] LABS: Anion Gap 11.8 mmol/L (7-16); Blood Urea Nitrogen 11 mg/dL (7-17); Carbon Dioxide 26 mmol/L (22-30); Chloride 98 mmol/L (98-107); Estimated CRCL calculation 84 ml/min; Estimated Glomerular Filt Rate > 60; Glucose 110 mg/dL (65-105); Potassium 3.8 mmol/L (3.4-5.0); Sodium 132 mmol/L (137-145)
[2020-05-23] MEDS: ONDANSETRON INJ 4 MG/2 ML VIAL IV PUSH (09:37)
[2020-05-23 13:52] LABS: West Nile Virus, IgM <0.90 index (<0.90)
--- NOTE | 2020-05-23 15:20 | PM.IMPN ---
Progress Note: A&P Assessment and Plan (1) Febrile illness, acute: Code(s): R50.9 - Fever, unspecified Status: Acute Assessment and Plan: Suspect related to viral encephalitis syndrome. Brain CT and MRI unremarkable. CXR clear on admission. WBC normal. CRP 1.6. COVID negative. Blood cultures Negative. Repeat CXR normal. Pelvic US showing no acute findings. Inflammatory markers negative. WNV IgM negative. HSV titers and Ehrlichiosis pending. LP completed on 05/20 with opening pressure at 20mmHg. Likely traumatic tap with clearing of initially blood tinged CSF. RBC 25 with WBC 305 95% lymphocytes. TP CSF 139 with normal glucose. Neurology consulted and appreciate their input. Other CSF findings still pending. Continue Acyclovir and Doxy. (2) Viral encephalitis: Code(s): A86 - Unspecified viral encephalitis Status: Acute Assessment and Plan: As above. (3) Headache: Qualifiers: Headache chronicity pattern: unspecified pattern Headache type: unspecified Intractability: intractable Qualified Code(s): R51 - Headache Code(s): R51 - Headache Status: Acute Assessment and Plan: The patient presentw with headache and fever. No focal neurological symptoms. CT and MRI brain are normal. Headaches are waning. Fever curve improved. Continue Acyclovir as we await HSV PCR results. Neurology following and appreciate their input. WNV IgM negative. Other testing pending. (4) Suspected 2019 novel coronavirus infection: Code(s): Z20.828 - Contact with and (suspected) exposure to other viral communicable diseases Status: Acute Assessment and Plan: The patient was swabbed for COVID-19 virus and is negative. Inflammatory markers normal so doubt she has COVID so will not plan to reswab. (5) History of asthma: Code(s): Z87.09 - Personal history of other diseases of the respiratory system Status: Chronic Assessment and Plan: Stable. Continue bronchodilators as needed. (6) APRIL (acute kidney injury): Code(s): N17.9 - Acute kidney failure, unspecified Status: Acute Assessment and Plan: Cr 1.2 yesterday probably related to the acyclovir +/- dehydration from por oral intake. NS started yesterday and Cr better today. Continue IVF for now. Subjective Date/time seen: 07/27/20 15:20 Interval history: 34yo female presented with 4-5 day history malaise, fever, headache. Patient feels better today. Headaches much better. Minimal fevers now. Walking to the [place]. Headache does not worsen when sitting up. Exam Narrative: Exam Narrative: Tm 100.8 99.0 126/75 77 20 96% ra Gen - NARD lying flat in bed Chest - CTA bilaterally, nml RR CV - RRR S1/S2 Abd - Soft, NT/ND, +BS Ext - No pedal edema Psych - Nml mood and affect Skin - no change in the bilat axillary rash Objective Data Vital Signs Vital Signs: Vital Signs - 24 hr 05/22/20 22:00 05/22/20 22:56 05/23/20 06:00 Temperature 100.8 F H 99.2 F 99.0 F Pulse Rate 88 77 Respiratory Rate 20 20 Blood Pressure 106/80 126/75 Pulse Oximetry 97 95 05/23/20 09:25 Temperature Pulse Rate Respiratory Rate Blood Pressure Pulse Oximetry 96 Intake/Output Intake/Output: Intake & Output 05/20/20 05/21/20 05/22/20 05/23/20 23:59 23:59 23:59 23:59 Intake Total 2350 1885 2060 1830 Output Total 2800 2200 2450 1700 Balance -450 -315 -390 130 Meds/Results Medications: Active Medications Generic Name Dose Route Start Last Admin Trade Name Freq PRN Reason Stop Dose Admin Acetaminophen 650 mg 05/20/20 16:02 05/23/20 05:25 Tylenol Tablet PO 650 mg Q4H PRN Administration Pain Hydrocodone Bitart/Acetaminophen 1 tab 05/20/20 16:00 05/21/20 12:16 [place] 5-325 Mg PO 1 tab Q6H PRN Administration Pain Rated 6 or Greater Acyclovir Sodium 1,000 mg/ 270 mls @ 266 mls/hr 05/18/20 14:
[2020-05-24] MEDS: ONDANSETRON INJ 4 MG/2 ML VIAL IV PUSH ×3 (01:34→18:41)
[2020-05-24 06:00] VITALS: BP 125/72; PULSE 92; RESP 20; TEMP 37.1; O2SAT 95
[2020-05-24] MEDS: ACYCLOVIR SODIUM IVPB 1,000 MG in DEXTROSE 5% IN WATER 250 ML 266 MG IVPB ×3 (06:14→23:06)
[2020-05-24] MEDS: SODIUM CHLORIDE 0.9% IV 1,000 ML 100 ML IV CONT (06:15)
[2020-05-24 06:45] LABS: Anion Gap 12.9 mmol/L (7-16); Blood Urea Nitrogen 7 mg/dL (7-17); Calcium 8.2 mg/dL (8.4-10.2); Carbon Dioxide 25 mmol/L (22-30); Chloride 100 mmol/L (98-107); Estimated CRCL calculation 104 ml/min; Estimated Glomerular Filt Rate > 60; Glucose 112 mg/dL (65-105); Potassium 3.9 mmol/L (3.4-5.0); Sodium 134 mmol/L (137-145)
[2020-05-24] MEDS: ACETAMINOPHEN 325 MG TABLET 650 MG PO ×2 (10:37→21:21)
[2020-05-24 14:00] VITALS: BP 120/49; PULSE 69; RESP 18; TEMP 36.7; O2SAT 98
[2020-05-24 16:33] LABS: VDRL Quantitative CSF Nonreactive (Nonreactive)
--- NOTE | 2020-05-24 17:11 | PM.IMPN ---
Progress Note: A&P Assessment and Plan (1) Febrile illness, acute: Code(s): R50.9 - Fever, unspecified Status: Acute Assessment and Plan: Suspect related to viral encephalitis syndrome. Brain CT and MRI unremarkable. CXR clear on admission. WBC normal. CRP 1.6. COVID negative. Blood cultures Negative. Repeat CXR normal. Pelvic US showing no acute findings. Inflammatory markers negative. WNV IgM negative. HSV titers and Ehrlichiosis pending. LP completed on 05/20 with opening pressure at 20mmHg. Likely traumatic tap with clearing of initially blood tinged CSF. RBC 25 with WBC 305 95% lymphocytes. TP CSF 139 with normal glucose. Neurology consulted and appreciate their input. Other CSF findings still pending. Continue Acyclovir and Doxy. (2) Viral encephalitis: Code(s): A86 - Unspecified viral encephalitis Status: Acute Assessment and Plan: As above. (3) Headache: Qualifiers: Headache chronicity pattern: unspecified pattern Headache type: unspecified Intractability: intractable Qualified Code(s): R51 - Headache Code(s): R51 - Headache Status: Acute Assessment and Plan: The patient presentw with headache and fever. No focal neurological symptoms. CT and MRI brain are normal. Headaches are waning. Fever curve improved. Continue Acyclovir as we await HSV PCR results. Neurology following and appreciate their input. WNV IgM negative. Other testing pending. (4) History of asthma: Code(s): Z87.09 - Personal history of other diseases of the respiratory system Status: Chronic Assessment and Plan: Stable. Continue bronchodilators as needed. (5) APRIL (acute kidney injury): Code(s): N17.9 - Acute kidney failure, unspecified Status: Acute Assessment and Plan: Cr 1.2 05/22, probably related to the acyclovir +/- dehydration from por oral intake. NS started and Cr .08 today. Subjective Date/time seen: 05/24/20 17:11 Interval history: Date of visit 05/24. 34yo female presented with 4-5 day history malaise, fever, headache. Patient feels better,. Headaches gone as are fevers. Walking to the [place]. Exam Narrative: Exam Narrative: Tm 37.9 36.7.0 120/50 77 20 98% ra Gen - NARD lying flat in bed Chest - CTA bilaterally, nml RR CV - RRR S1/S2 Abd - Soft, NT/ND, +BS Ext - No pedal edema Psych - Nml mood and affect Objective Data Vital Signs Vital Signs: Vital Signs - 24 hr 05/23/20 21:00 05/23/20 22:00 05/24/20 06:00 Temperature 36.9 C 37.1 C Pulse Rate 83 83 92 Respiratory Rate 20 20 20 Blood Pressure 131/89 125/72 Pulse Oximetry 97 97 95 05/24/20 14:00 Temperature 36.7 C Pulse Rate 69 Respiratory Rate 18 Blood Pressure 120/49 L Pulse Oximetry 98 Intake/Output Intake/Output: Intake & Output 05/21/20 05/22/20 05/23/20 05/24/20 23:59 23:59 23:59 23:59 Intake Total 1885 2060 4150 1990 Output Total 2200 2450 3500 2850 Balance -315 -390 650 -860 Meds/Results Medications: Active Medications Generic Name Dose Route Start Last Admin Trade Name [place] PRN Reason Stop Dose Admin Acetaminophen 650 mg 05/20/20 16:02 05/24/20 10:37 Tylenol Tablet PO 650 mg Q4H PRN Administration Pain Hydrocodone Bitart/Acetaminophen 1 tab 05/20/20 16:00 05/21/20 12:16 [place] 5-325 Mg PO 1 tab Q6H PRN Administration Pain Rated 6 or Greater Acyclovir Sodium 1,000 mg/ 270 mls @ 266 mls/hr 05/18/20 14:25 05/24/20 14:23 Dextrose IVPB 266 mls/hr Q8HR MARTA Administration Doxycycline Hyclate 100 mg/ 100 mls @ 100 mls/hr 05/21/20 14:10 05/24/20 10:56 Dextrose IVPB Infused Q12HR MARTA Infusion Sodium Chloride 1,000 mls @ 100 mls/hr 05/22/20 14:15 05/24/20 06:15 Normal Saline Iv IV CONT 100 mls/hr .Q10H MARTA Administration Ondansetron HCl 4 mg 05/18/20 16:41 05/24/20 10:38 Zofran Inj IV PUSH 4 mg Q6H [place]
[2020-05-24 22:00] VITALS: BP 141/83; PULSE 72; RESP 18; TEMP 37.6; O2SAT 98
[2020-05-25 06:00] VITALS: BP 125/78; PULSE 85; RESP 20; TEMP 37.4; O2SAT 94
[2020-05-25] MEDS: ACYCLOVIR SODIUM IVPB 1,000 MG in DEXTROSE 5% IN WATER 250 ML 250 MG IVPB (08:09)
--- NOTE | 2020-05-25 11:25 | PCNWS ---
Weekly nutritional screen. Patient is tolerating current diet with adequate intake. No weight loss reported. No nutritional needs at this time.
--- NOTE | 2020-05-25 13:18 | PM.IMPN ---
Progress Note: A&P Assessment and Plan (1) Febrile illness, acute: Code(s): R50.9 - Fever, unspecified Status: Acute Assessment and Plan: Suspect related to viral encephalitis syndrome. Brain CT and MRI unremarkable. CXR clear on admission. WBC normal. CRP 1.6. COVID negative. Blood cultures Negative. Repeat CXR normal. Pelvic US showing no acute findings. Inflammatory markers negative. WNV IgM negative. HSV titers and Ehrlichiosis pending. LP completed on 05/20 with opening pressure at 20mmHg. Likely traumatic tap with clearing of initially blood tinged CSF. RBC 25 with WBC 305 95% lymphocytes. TP CSF 139 with normal glucose. Continue Acyclovir and Doxy. D#7 (2) Viral encephalitis: Code(s): A86 - Unspecified viral encephalitis Status: Acute Assessment and Plan: As above. (3) Headache: Qualifiers: Headache chronicity pattern: unspecified pattern Headache type: unspecified Intractability: intractable Qualified Code(s): R51 - Headache Code(s): R51 - Headache Status: Acute Assessment and Plan: The patient presented with headache and fever. No focal neurological symptoms. CT and MRI brain are normal. Headaches are gone. Fever curve improved. Continue Acyclovir D#7 as we await HSV PCR results. . WNV IgM negative. Other testing pending. (4) History of asthma: Code(s): Z87.09 - Personal history of other diseases of the respiratory system Status: Chronic Assessment and Plan: Stable. Continue bronchodilators as needed. (5) APRIL (acute kidney injury): Code(s): N17.9 - Acute kidney failure, unspecified Status: Acute Assessment and Plan: Cr 1.2 05/22, probably related to the acyclovir +/- dehydration from por oral intake. NS started and Cr .08 05/24 and recheck am. Subjective Date/time seen: 05/25/20 13:18 Interval history: Date of visit 05/25. 34yo female presented with 4-5 day history malaise, fever, headache. Patient feels better,. Headaches gone as are fevers. Walking to the [place].and had shower this am Exam Narrative: Exam Narrative: Tm 37.4 124/78 77 20 98% ra Gen - NARD lying flat in bed Chest - CTA bilaterally, nml RR CV - RRR S1/S2 Abd - Soft, NT/ND, +BS Ext - No pedal edema Psych - Nml mood and affect Neuro alert with no focal deficits Objective Data Vital Signs Vital Signs: Vital Signs - 24 hr 05/24/20 14:00 05/24/20 22:00 05/25/20 06:00 Temperature 36.7 C 37.6 C H 37.4 C Pulse Rate 69 72 85 Respiratory Rate 18 18 20 Blood Pressure 120/49 L 141/83 H 125/78 Pulse Oximetry 98 98 94 Intake/Output Intake/Output: Intake & Output 05/22/20 05/23/20 05/24/20 05/25/20 23:59 23:59 23:59 23:59 Intake Total 2060 4150 4210 1760 Output Total 2450 3500 4750 1700 Balance -390 650 -540 60 Meds/Results Medications: Active Medications Generic Name Dose Route Start Last Admin Trade Name Freq PRN Reason Stop Dose Admin Acetaminophen 650 mg 05/20/20 16:02 05/24/20 21:21 Tylenol Tablet PO 650 mg Q4H PRN Administration Pain Hydrocodone Bitart/Acetaminophen 1 tab 05/20/20 16:00 05/21/20 12:16 [place] 5-325 Mg PO 1 tab Q6H PRN Administration Pain Rated 6 or Greater Acyclovir Sodium 1,000 mg/ 270 mls @ 266 mls/hr 05/18/20 14:25 05/25/20 09:19 Dextrose IVPB Infused Q8HR MARTA Infusion Doxycycline Hyclate 100 mg/ 100 mls @ 100 mls/hr 05/21/20 14:10 05/25/20 10:18 Dextrose IVPB Infused Q12HR MARTA Infusion Ondansetron HCl 4 mg 05/18/20 16:41 05/24/20 18:41 Zofran Inj IV PUSH 4 mg Q6H PRN Administration Nausea And Vomiting Radiology Results: ITS Impressions Head CT 05/15/20 21:34 IMPRESSION: 1. Normal brain. Chest X-Ray 05/18/20 15:13 IMPRESSION: 1. No acute cardiopulmonary abnormality. Pelvic/Transvag US 05/18/20 15:15 IMPRESSION: 1. Unremarkable pelvic
[2020-05-25 14:00] VITALS: BP 138/76; PULSE 79; RESP 18; TEMP 37; O2SAT 98
[2020-05-25] MEDS: ACYCLOVIR SODIUM IVPB 1,000 MG in DEXTROSE 5% IN WATER 250 ML 270 MG IVPB ×2 (14:40→22:27)
[2020-05-25] MEDS: ACETAMINOPHEN 325 MG TABLET 650 MG PO ×2 (14:51→22:30)
--- NOTE | 2020-05-25 14:57 | WPDNEUROPN ---
Progress Note: A&P Assessment and Plan (1) Viral encephalitis: Code(s): A86 - Unspecified viral encephalitis Status: Acute (2) History of asthma: Code(s): Z87.09 - Personal history of other diseases of the respiratory system Status: Chronic (3) Febrile illness, acute: Code(s): R50.9 - Fever, unspecified Status: Acute (4) Fever: Qualifiers: Fever type: unspecified Qualified Code(s): R50.9 - Fever, unspecified Code(s): R50.9 - Fever, unspecified Status: Acute (5) Headache: Qualifiers: Headache chronicity pattern: unspecified pattern Headache type: unspecified Intractability: intractable Qualified Code(s): R51 - Headache Code(s): R51 - Headache Status: Acute Additional Plan discussed with the mother and the patient they are agreeable for the full 10 day IV course of acyclovir while we are still waiting for the results of the PCR for herpes which was clearly ordered and the result keep on showing a mass pending I did our homework so did the hospitalist to try to track down about the results of the herpes PCR it has been so far unsuccessful I will be happy to follow while she is here Review of Systems Review of Systems: All systems reviewed & are unremarkable except as noted in HPI and below Exam Const: General: comfortable and no acute distress HENMT: General nose exam: Normal nares present Mouth: Yes moist mucous membranes Eyes: General: appearance normal, both eyes and all related structures Neck: Neck: supple and no JVD Resp: Effort & Inspection: normal respiratory effort Auscultation: clear to auscultation bilaterally Cardio: Rate: regular rate Rhythm: regular rhythm GI: Auscultation: normal bowel sounds Skin: General skin exam: normal color and no rashes or lesions noted Neuro: Other: patient is awake alert well oriented time place and person is speech and language functions are normal cranial exam shows normal motor examination sensory examination is normal Extrem: General: normal to inspection Psych: Mental Status: mental status grossly normal Objective Data Vital Signs Vital Signs: Vital Signs - 24 hr 05/24/20 22:00 05/25/20 06:00 05/25/20 14:00 Temperature 37.6 C H 37.4 C 37.0 C Pulse Rate 72 85 79 Respiratory Rate 18 20 18 Blood Pressure 141/83 H 125/78 138/76 Pulse Oximetry 98 94 98 Intake/Output Intake/Output: Intake & Output 05/22/20 05/23/20 05/24/20 05/25/20 23:59 23:59 23:59 23:59 Intake Total 2060 4150 4210 1760 Output Total 2450 3500 4750 1700 Balance -390 650 -540 60 Meds/Results Medications: Active Medications Generic Name Dose Route Start Last Admin Trade Name Freq PRN Reason Stop Dose Admin Acetaminophen 650 mg 05/20/20 16:02 05/25/20 14:51 Tylenol Tablet PO 650 mg Q4H PRN Administration Pain Hydrocodone Bitart/Acetaminophen 1 tab 05/20/20 16:00 05/21/20 12:16 [place] 5-325 Mg PO 1 tab Q6H PRN Administration Pain Rated 6 or Greater Acyclovir Sodium 1,000 mg/ 270 mls @ 266 mls/hr 05/18/20 14:25 05/25/20 14:40 Dextrose IVPB 270 mls/hr Q8HR MARTA Administration Doxycycline Hyclate 100 mg/ 100 mls @ 100 mls/hr 05/21/20 14:10 05/25/20 10:18 Dextrose IVPB Infused Q12HR MARTA Infusion Ondansetron HCl 4 mg 05/18/20 16:41 05/24/20 18:41 Zofran Inj IV PUSH 4 mg Q6H PRN Administration Nausea And Vomiting Radiology Results: ITS Impressions Head CT 05/15/20 21:34 IMPRESSION: 1. Normal brain. Chest X-Ray 05/18/20 15:13 IMPRESSION: 1. No acute cardiopulmonary abnormality. Pelvic/Transvag US 05/18/20 15:15 IMPRESSION: 1. Unremarkable pelvic ultrasound. Brain MRI 05/19/20 06:31 IMPRESSION: 1. Normal brain. Lumbar Puncture Fluoroscopy 05/20/20 17:59 IMPRESSION: Opening pressure of 20 mmHg Likely traumatic tap, with clearing of the initially blood-tinged CSF on the se
[2020-05-25 15:17] LABS: HSV 1 IgM Screen Negative (Negative); HSV 2 IgM Screen Negative (Negative)
[2020-05-25 22:00] VITALS: BP 121/64; PULSE 87; RESP 18; TEMP 37.4; O2SAT 98
[2020-05-26] MEDS: ACYCLOVIR SODIUM IVPB 1,000 MG in DEXTROSE 5% IN WATER 250 ML 200 MG IVPB ×3 (05:45→21:40)
[2020-05-26] MEDS: ACETAMINOPHEN 325 MG TABLET 650 MG PO ×3 (05:51→20:36)
[2020-05-26 06:00] VITALS: BP 140/77; PULSE 89; RESP 18; TEMP 36.9; O2SAT 99
[2020-05-26 08:05] LABS: Anion Gap 12.5 mmol/L (7-16); Blood Urea Nitrogen 5 mg/dL (7-17); Calcium 8.7 mg/dL (8.4-10.2); Carbon Dioxide 24 mmol/L (22-30); Chloride 99 mmol/L (98-107); Estimated CRCL calculation 135 ml/min; Estimated Glomerular Filt Rate > 60; Glucose 118 mg/dL (65-105); Potassium 3.5 mmol/L (3.4-5.0); Sodium 132 mmol/L (137-145)
[2020-05-26] MEDS: ONDANSETRON INJ 4 MG/2 ML VIAL IV PUSH (09:18)
[2020-05-26 14:00] VITALS: BP 142/93; PULSE 70; RESP 18; TEMP 37.1; O2SAT 100
--- NOTE | 2020-05-26 14:57 | PM.IMPN ---
Progress Note: A&P Assessment and Plan (1) Febrile illness, acute: Code(s): R50.9 - Fever, unspecified Status: Acute Assessment and Plan: Suspect related to viral encephalitis syndrome. Brain CT and MRI unremarkable. CXR clear on admission. WBC normal. CRP 1.6. COVID negative. Blood cultures Negative. Repeat CXR normal. Pelvic US showing no acute findings. Inflammatory markers negative. WNV IgM negative. HSV titers and Ehrlichiosis pending. LP completed on 05/20 with opening pressure at 20mmHg. Likely traumatic tap with clearing of initially blood tinged CSF. RBC 25 with WBC 305 95% lymphocytes. TP CSF 139 with normal glucose. Continue Acyclovir and Doxy. D#8 (2) Viral encephalitis: Code(s): A86 - Unspecified viral encephalitis Status: Acute Assessment and Plan: As above. (3) Headache: Qualifiers: Headache chronicity pattern: unspecified pattern Headache type: unspecified Intractability: intractable Qualified Code(s): R51 - Headache Code(s): R51 - Headache Status: Acute Assessment and Plan: The patient presented with headache and fever. No focal neurological symptoms. CT and MRI brain are normal. Headaches are gone. Fever curve improved. Continue Acyclovir D#8 as we await HSV PCR results. . WNV IgM negative. Other testing pending. (4) History of asthma: Code(s): Z87.09 - Personal history of other diseases of the respiratory system Status: Chronic Assessment and Plan: Stable. Continue bronchodilators as needed. (5) APRIL (acute kidney injury): Code(s): N17.9 - Acute kidney failure, unspecified Status: Acute Assessment and Plan: Cr 1.2 05/22, probably related to the acyclovir +/- dehydration from por oral intake. NS started and Cr 0.6 today. Subjective Date/time seen: 05/26/20 14:57 Interval history: Date of visit 05/26. 34yo female presented with 4-5 day history malaise, fever, headache. Patient feels better,. Headaches gone as are fevers. Walking to the [place].and resolved that has to stay until HSV pcr returns or finishes 10 of acyclvir Exam Narrative: Exam Narrative: Tm 37.4 again 140/80 70 20 98% ra Gen - NARD lying flat in bed Chest - CTA bilaterally, nml RR CV - RRR S1/S2 Abd - Soft, NT/ND, +BS Ext - No pedal edema Psych - Nml mood and affect Neuro alert with no focal deficits Objective Data Vital Signs Vital Signs: Vital Signs - 24 hr 05/25/20 22:00 05/26/20 06:00 05/26/20 14:00 Temperature 37.4 C 36.9 C 37.1 C Pulse Rate 87 89 70 Respiratory Rate 18 18 18 Blood Pressure 121/64 140/77 142/93 H Pulse Oximetry 98 99 100 Intake/Output Intake/Output: Intake & Output 05/23/20 05/24/20 05/25/20 05/26/20 23:59 23:59 23:59 23:59 Intake Total 4150 4210 3800 680 Output Total 3500 4750 4600 800 Balance 650 -540 -800 -120 Meds/Results Medications: Active Medications Generic Name Dose Route Start Last Admin Trade Name Freq PRN Reason Stop Dose Admin Acetaminophen 650 mg 05/20/20 16:02 05/26/20 05:51 Tylenol Tablet PO 650 mg Q4H PRN Administration Pain Hydrocodone Bitart/Acetaminophen 1 tab 05/20/20 16:00 05/21/20 12:16 [place] 5-325 Mg PO 1 tab Q6H PRN Administration Pain Rated 6 or Greater Acyclovir Sodium 1,000 mg/ 270 mls @ 266 mls/hr 05/18/20 14:25 05/26/20 13:43 Dextrose IVPB 200 mls/hr Q8HR MARTA Administration Doxycycline Hyclate 100 mg/ 100 mls @ 100 mls/hr 05/21/20 14:10 05/26/20 10:18 Dextrose IVPB Infused Q12HR MARTA Infusion Ondansetron HCl 4 mg 05/18/20 16:41 05/26/20 09:18 Zofran Inj IV PUSH 4 mg Q6H PRN Administration Nausea And Vomiting Radiology Results: ITS Impressions Head CT 05/15/20 21:34 IMPRESSION: 1. Normal brain. Chest X-Ray 05/18/20 15:13 IMPRESSION: 1. No acute cardiopulmonary abnormality. Pelvic/Transvag US
[2020-05-26 22:00] VITALS: BP 129/87; PULSE 87; RESP 18; TEMP 36.8; O2SAT 95
[2020-05-27] MEDS: ACYCLOVIR SODIUM IVPB 1,000 MG in DEXTROSE 5% IN WATER 250 ML 125 MG IVPB (05:44)
[2020-05-27] MEDS: ACETAMINOPHEN 325 MG TABLET 650 MG PO (05:55)
[2020-05-27 06:00] VITALS: BP 123/70; PULSE 90; RESP 16; TEMP 37.3; O2SAT 96
[2020-05-27 13:03] LABS: Herpes Simplex Type 1 DNA PCR Not Detected (Not Detected); Herpes Simplex Type 2 DNA PCR Not Detected (Not Detected)
[2020-05-27 14:00] VITALS: BP 138/96; PULSE 108; RESP 20; TEMP 37.3; O2SAT 99
--- NOTE | 2020-05-28 16:55 | PM.DS ---
DS: Admitting Diagnosis Admitting Diagnosis Admitting Diagnosis: Fever, unspecified DS: Discharge Diagnosis Discharge Diagnosis (1) Febrile illness, acute: Code(s): R50.9 - Fever, unspecified Status: Acute Assessment and Plan: Suspect related to viral encephalitis syndrome. Brain CT and MRI unremarkable. CXR clear on admission. WBC normal. CRP 1.6. COVID negative. Blood cultures Negative. Repeat CXR normal. Pelvic US showing no acute findings. Inflammatory markers negative. WNV IgM negative. HSV titers and Ehrlichiosis pending negative LP completed on 05/20 with opening pressure at 20mmHg. Likely traumatic tap with clearing of initially blood tinged CSF. RBC 25 with WBC 305 95% lymphocytes. TP CSF 139 with normal glucose. Continue Acyclovir and Doxy. D#9 given for 9 days and when HSV by PCR returned negative patient was discharged home (2) Viral encephalitis: Code(s): A86 - Unspecified viral encephalitis Status: Acute Assessment and Plan: As above. (3) Headache: Qualifiers: Headache chronicity pattern: unspecified pattern Headache type: unspecified Intractability: intractable Qualified Code(s): R51 - Headache Code(s): R51 - Headache Status: Acute Assessment and Plan: The patient presented with headache and fever. No focal neurological symptoms. CT and MRI brain are normal. Headaches are gone. Fever subsided. Continued Acyclovir D#9 until HS B by PCR returned negative. . WNV IgM negative. (4) History of asthma: Code(s): Z87.09 - Personal history of other diseases of the respiratory system Status: Chronic Assessment and Plan: Stable. Continue bronchodilators as needed. (5) APRIL (acute kidney injury): Code(s): N17.9 - Acute kidney failure, unspecified Status: Acute Assessment and Plan: Cr 1.2 05/22, probably related to the acyclovir +/- dehydration from por oral intake. NS started and Cr 0.6 day prior to discharge. DS: Summary Hospital Course Hospital Course: 34-year-old elderly white female presented with headache and nausea and fever. Initially LP attempted in ER was unsuccessful. She initially improved then had further symptoms of headache and fever and agreed to LP which revealed results compatible with viral encephalitis with normal glucose, elevated protein, and 95% lymphocytes on the smear. Cultures were negative and she was placed on acyclovir pending results of HSV by PCR. She completed 9 days of a ten-day course when the results return negative and was able to be discharged home. Headaches had subsided several days earlier and she had no fever for over 72 hours. She was up about taking a normal diet. She will follow-up with her primary care within 1-2 weeks and return to work in 10 days. Etiology of encephalitis was felt to be viral with no specific organism Time Spent with Patient Time attestation: Total time spent providing and/or coordinating discharge services: 35 minutes Exam Narrative: Exam Narrative: condition on discharge blood pressure 140/90 pulse 70 respirations 18 per minute afebrile neck supple pupils equal reactive to light sclera anicteric lungs clear CV regular rate rhythm abdomen soft nontender no masses extremities without edema distal pulse 2 + neuro alert pleasant cooperative no focal deficits up and about without any complaints of headache or nausea Discharge Plan Discharge Attending physician on discharge: Eric Lynn Consulting providers: Ace Dc ; Randell Easley ; Yao Tam Discharging Clinician: Eric Lynn Patient Disposition: Home, Self-Care Activity: as tolerated Diet: as tolerated Patient Instructions: Antibiotic Form, Pain Management (GEN), Acute Headache (DC), Acute Nausea and Vomiting (DC) Stand Alone Forms: General Discharge Information Follow-up/Referra
== END 2020-05-27 15:15 | disposition home or self-care (01) | DRG 98 ==
LOC: ANHED 05-16 00:54 → ANH3MEDSUR 05-16 01:35
PROVIDERS: Internal Medicine; Psychiatry & Neurology Neurology; Admitting Provider Family Medicine; Emergency Provider Emergency Medicine; PCP Family Medicine; Visit Provider Internal Medicine
DX: A86 Unspecified viral encephalitis (principal); N17.9 Acute kidney failure, unspecified; N14.1 Nephropathy induced by other drugs, medicaments and biological substances; T37.5X5A Adverse effect of antiviral drugs, initial encounter; R21 Rash and other nonspecific skin eruption; E86.0 Dehydration; Z20.828 Contact with and (suspected) exposure to other viral communicable diseases; N93.8 Other specified abnormal uterine and vaginal bleeding; R10.2 Pelvic and perineal pain; Z87.09 Personal history of other diseases of the respiratory system; Z87.891 Personal history of nicotine dependence
CPT/HCPCS: 36415; 62328; 70450; 70551; 71045; 71046; 76830; 76856; 80048; 80053; 81001; 82728; 82945; 83605; 83615; 84157; 85025; 85027; 85610; 85730; 86140; 86592; 86617; 86666; 86695; 86696; 86788; 87040; 87070; 87205; 87529; 87635; 87798; 88108; 89051; 96361; 96365; 96374; 96375; 96376; 99285; A9270; C9803; G0378; J0133; J0696; J0780; J1200; J1885; J2060; J2270; J2405; J7030; J7042; J7060; U0003

== ENCOUNTER 2020-07-07 07:31 | Outpatient (RCR) | payer OTHER, SELFPAY ==
--- NOTE | 2020-07-07 08:32 | OTOPEVAL ---
OCCUPATIONAL THERAPY EVALUATION AND DISCHARGE SUMMARY 07/07/2020 Thank you for referring Geovani Trevino to [facility].? Geovani presents for outpatient OT evaluation after a lengthy hospitalization due to viral encephalitis. At this time she has intact strength and functional coordination. She is currently independent with utilizing energy conservation techniques during ADLs. She verbalizes her understanding that progressing back to her prior energy/endurance will take time. Hand strengthening and coordination HEP was issued for fine-tuning and she is independent with this. Please review, sign, date and return this D/C Summary GLORY. I agree with and certify that the following plan of care is medically necessary. Referring Physician Date Admitting Provider: Attending Provider: Esvin Alford MD Referring Provider: Esvin Alford MD *OT Outpatient Evaluation Therapy Assessment Status Assessment Status Assessment Status Evaluation Outpatient Past Medical History Neurological History Hx Migraine Yes Cardiovascular History Hx Cardiac Disorders No Significant History Respiratory History Hx Pneumonia Yes Gastrointestinal History Hx Gastroesophageal Reflux Disease Yes Genitourinary History Hx Urinary Tract Infection Yes Musculoskeletal History Hx Musculoskeletal Disorders No Significant History Hematological History Hx Hematological Disorders No Significant History Endocrine History Hx Hypothyroidism Yes HEENT History Hx HEENT Disorders No Significant History Integumentary History Hx Skin Disorders No Significant History Reproductive History Hx Other Reproductive Disorders Yes: PCOS Psychosocial History Hx Psychiatric Disorders No Significant History Pain History Has Past Pain Affected Your Daily Life Yes Anesthesia History Hx Anesthesia Reactions No Significant History Evaluation Information Problem Diagnosis Viral encephalitis Additional Evaluation Detail Geovani was hospitalized at the end of April 2020 for 2 weeks secondary to viral encephalitis. Subjective Information Since discharging from the Query Text:As Reported By Patient/ hospital she reports Family difficulties with energy and fatigue specifically for handwriting tasks, using a computer, laundry, and cleaning. She has been utilizing rest breaks and completing ADLs seated as needed to compensate for endurance. Overall she reports being about 95% back to normal and notices steady progress to returning to 100% .
== END 2020-09-21 10:44 | disposition home or self-care (01) ==
LOC: ANHOT 07:31
PROVIDERS: PCP Family Medicine; Referring Provider Family Medicine; Visit Provider Family Medicine
DX: A86 Unspecified viral encephalitis (principal)
CPT/HCPCS: 97165